=== PATIENT | male | born 1945 | race African-American/Black ===

== ENCOUNTER 2021-07-18 03:43 | Outpatient (CLI) | payer MEDICARE, OTHER | END 2021-07-18 03:44 | disposition critical access hospital (66) | LOC: EMS 03:43 | DX: R40.4 Transient alteration of awareness (principal) | CPT/HCPCS: A0425; A0427 ==

== ENCOUNTER 2021-07-18 04:04 | Emergency (ER) | payer MEDICARE, OTHER ==
[2021-07-18] MEDS ORDERED: ACETAMINOPHEN 650 MG SUPP PR STA (04:24)
[2021-07-18] MEDS ORDERED: SODIUM CHLORIDE 0.9% 1,000 ML IV STA (04:25)
[2021-07-18 04:31] LABS: BASOPHILS % (AUTO) 0.3 %; EOSINOPHILS % (AUTO) 0.1 %; HCT - HEMATOCRIT 41.5 % (42.0-52.0); HGB - HEMOGLOBIN 13.8 g/dL (14.0-18.0); LYMPHOCYTES # (AUTO) 0.3 10^3/uL (1.5-3.5); MEAN CORPUSCULAR HEMOGLOBIN 31.3 pg (27.0-31.0); MEAN CORPUSCULAR HGB CONC 33.3 g/dL (32.0-36.0); MEAN CORPUSCULAR VOLUME 94.1 fL (80.0-94.0); MONOCYTES # (AUTO) 0.6 10^3/uL (0.0-1.0); MONOCYTES % (AUTO) 3.5 %; NEUTROPHILS # (AUTO) 14.6 10^3/uL (1.5-6.6); NEUTROPHILS % (AUTO) 93.5 %; PLT - PLATELET COUNT 155 10^3/uL (130-450); RED BLOOD COUNT 4.41 10^6/uL (4.70-6.10); RED CELL DISTRIBUTION WIDTH 14.7 % (12.0-15.0); WHITE BLOOD COUNT 15.6 x10^3/uL (4.8-10.8)
--- NOTE | 2021-07-18 04:35 | ED Physician Documentation ---
History of Present Illness - Stated complaint Stated Complaint: FEVER - Chief complaint Chief Complaint: Fever - History obtained from History obtained from: EMS - Additonal information Additional information: 75yM with pmh cva with residual L sided deficit, seizure disorder on keppra and dilantin, htn, gerd, DNR/DNI with selective interventions, p/w chronic cough increasing in severity over the past couple of days. patient had a shaking and coughing/choking episode today witnessed by family around 2:30am prompting them to call EMS. patient lives with and children in a hospital bed in the l iving room of their home. normally ambulatory with walker. last seizure 5 years ago per ems. Review of Systems Unable to obtain: Confused PD PAST MEDICAL HISTORY - Past Medical History Past Medical History: Yes Cardiovascular: Hypertension Neuro: CVA, Seizure disorder GI: GERD : Incontinence Musculoskeletal: Chronic back pain - Past Surgical History Past Surgical History: Yes General: Bowel surgery - Present Medications Home Medications: Ambulatory Orders Medication Instructions Recorded Confirmed Cefdinir 300 mg PO BID #20 cap 07/18/21 FLUoxetine [PROzac] 30 mg PO DAILY 07/18/21 07/18/21 Felodipine [Felodipine ER] 10 mg PO DAILY 07/18/21 07/18/21 Ferrous Sulfate 325 mg PO DAILY 07/18/21 07/18/21 Levetiracetam [Keppra] 500 mg PO BID 07/18/21 07/18/21 Lisinopril [Zestril] 20 mg PO DAILY 07/18/21 07/18/21 Mirtazapine 30 mg PO DAILY 07/18/21 07/18/21 Omeprazole Magnesium 20 mg PO DAILY 07/18/21 07/18/21 Phenytoin [Dilantin] 190 mg PO DAILY 07/18/21 07/18/21 metroNIDAZOLE [Flagyl] 500 mg PO BID 10 Days #20 tablet 07/18/21 - Allergies Allergies/Adverse Reactions: Allergies Allergy/AdvReac Type Severity Reaction Status Date / Time No Known Drug Allergies Allergy Verified 07/19/21 18:40 - Social History Does the pt smoke?: No Smoking Status: Never smoker Does the pt drink ETOH?: Yes Does the pt have substance abuse?: No - Immunizations Immunizations are current?: No Immunizations: TDAP >10years/unknown - POLST Patient has POLST: No PD ED PE NORMAL - Vitals Vital signs reviewed: Yes - General General: No acute distress, Other (AOX1) - HEENT HEENT: Atraumatic, PERRL, EOMI - Neck Neck: Supple, no meningeal sign - Cardiac Cardiac: RRR - Respiratory Respiratory: Other (BL coarse breath sounds) - Abdomen Abdomen: Non tender, Non distended - Derm Derm: Normal color, Warm and dry - Extremities Extremities: No deformity - Neuro Neuro: Other (AOX1. baseline L sided weakness) - Psych Psych: Normal mood, Normal affect, Other (appears calm but AOX1) Results - Vitals Vitals: Oxygen O2 Source Room air - Labs Labs: Microbiology 07/18/21 04:15 Blood Culture - Preliminary Blood 07/18/21 04:45 Urine Culture - Final Urine,Catheterized No growth 07/18/21 05:38 Blood Culture - Preliminary Blood NO GROWTH AFTER 2 DAYS 07/18/21 04:15 Blood Culture (PCR) - Final Blood Laboratory Tests 07/18/21 07/18/21 07/18/21 04:15 04:15 04:15 WBC 15.6 H RBC 4.41 L Hgb 13.8 L Hct 41.5 L MCV 94.1 H MCH 31.3 H MCHC 33.3 RDW 14.7 Plt Count 155 MPV 12.0 H Neut # (Auto) 14.6 H Lymph # (Auto) 0.3 L [place] # (Auto) 0.6 Eos # (Auto) 0.0 Baso # (Auto) 0.0 Absolute Nucleated RBC 0.00 Nucleated RBC % 0.0 Sodium 141 Potassium 3.6 Chloride 104 Carbon Dioxide 26 Anion Gap 11.0 BUN 29 H Creatinine 1.1 Estimated GFR (MDRD) 80 L Glucose 106 H Lactic Acid 1.5 Calcium 9.3 Total Bilirubin 0.6 AST 23 ALT 24 Alkaline Phosphatase 119 Total Protein 7.7 Albumin 4.2 Globulin 3.5 Albumin/Globulin Ratio 1.2 Urine Color Urine Clarity Urine pH Ur Specific [place] Urine Protein Urine Glucose (UA) Urine Ketones Urine Occult Blood Urine Nitrite Urine Bilirubin Urine Urobilinogen Ur Leukocyte Esterase Urine RBC Urine WBC Ur Squamous Epith Cells Urine Bacteria Urine Culture Comments Nasal Adenovirus (PCR) Nasal B. parapertussis DNA (PCR) Nasal Coronavir 229E PCR Nasal Coronavir HKU1 PCR Nasal Coronavir NL63 PCR Nasal Coronavir OC43 PCR Nasal Enterovir/Rhinovir PCR Nasal Influenza B PCR Nasal Influenza A PCR Nasal Parainfluen 1 PCR Nasal Parainfluen 2 PCR Nasal Parainfluen 3 PCR Nasal Parainfluen 4 PCR Nasal RSV (PCR) Nasal B.pertussis DNA PCR Nasal C.pneumoniae (PCR) Venkata Human Metapneumo PCR Nasal M.pneumoniae (PCR) Nasal SARS-CoV-2 (PCR) Phenytoin 5.3 07/18/21 07/18/21 04:15 04:45 WBC RBC Hgb Hct MCV MCH MCHC RDW Plt Count MPV Neut # (Auto) Lymph # (Auto) [place] # (Auto) Eos # (Auto) Baso # (Auto) Absolute Nucleated RBC Nucleated RBC % Sodium Potassium Chloride Carbon Dioxide Anion Gap BUN Creatinine Estimated GFR (MDRD) Glucose Lactic Acid Calcium Total Bilirubin AST ALT Alkaline Phosphatase Total Protein Albumin Globulin Albumin/Globulin Ratio Urine Color YELLOW Urine Clarity CLEAR Urine pH 6.0 Ur Specific [place] 1.020 Urine Protein NEGATIVE Urine Glucose (UA) NEGATIVE Urine Ketones NEGATIVE Urine Occult Blood SMALL H Urine Nitrite NEGATIVE Urine Bilirubin NEGATIVE Urine Urobilinogen 0.2 (NORMAL) Ur Leukocyte Esterase TRACE H Urine RBC 6-10 H Urine WBC 4-5 Ur Squamous Epith Cells NONE SEEN Urine Bacteria Moderate H Urine Culture Comments INDICATED Nasal Adenovirus (PCR) NOT DETECTED Nasal B. parapertussis DNA (PCR) NOT DETECTED Nasal Coronavir 229E PCR NOT DETECTED Nasal Coronavir HKU1 PCR NOT DETECTED Nasal Coronavir NL63 PCR NOT DETECTED Nasal Coronavir OC43 PCR NOT DETECTED Nasal Enterovir/Rhinovir PCR NOT DETECTED Nasal Influenza B PCR NOT DETECTED Nasal Influenza A PCR NOT DETECTED Nasal Parainfluen 1 PCR NOT DETECTED Nasal Parainfluen 2 PCR NOT DETECTED Nasal Parainfluen 3 PCR NOT DETECTED Nasal Parainfluen 4 PCR NOT DETECTED Nasal RSV (PCR) NOT DETECTED Nasal B.pertussis DNA PCR NOT DETECTED Nasal C.pneumoniae (PCR) NOT DETECTED Venkata Human Metapneumo PCR NOT DETECTED Nasal M.pneumoniae (PCR) NOT DETECTED Nasal SARS-CoV-2 (PCR) NOT DETECTED Phenytoin PD MEDICAL DECISION MAKING - ED course ED course: 75yM p/w fever and tachycardia, likely 2/2 pneumonia given history of frequent cough that is worsening. Possible aspiration given he has been choking. will obtain labs, xr, reevaluate. Patient with improvement in tachycardia s/p symptomatic care. no longer febrile. rocephin given for presumed uti on u/a. Patient is still pending CT a/p. d/w Dr. Amaral, daytime ED MD for further management and care. Departure - Departure Disposition: 01 Home, Self Care Clinical Impression: UTI (urinary tract infection), Enteritis Condition: Stable Instructions: ED UTI Cystitis Male Prescriptions: Cefdinir 300 mg PO BID #20 cap metroNIDAZOLE [Flagyl] 500 mg PO BID 10 Days #20 tablet Comments: For the most part, your tests look good today. Your sepsis markers is negative, and your blood pressure has been stable. Your heart rate has come down nicely with the treatment of the fever. You do have a moderately elevated white blood cell count, which is not surprising, given that you have had a fever. You have some findings consistent with a urinary tract infection, but your CT scan does not show any kidney stones or severe inflammation of the kidneys. There is some inflammation in your bowels which could be reactionary because of the urinary tract infection. However, bowel inflammation can also be the result of a viral infection or of an overgrowth of the normal bacteria in the intestine. As such, we will treat you with 2 antibiotics to cover the potential for this plus the urinary tract infection. You have been given the first dose in the emergency department today. Please take your antibiotics every day, as directed, until the course is complete. You should drink plenty of water every day, preferably 8 to 10 cups. You may also take ibuprofen/Motrin/Advil 600 mg every 6 hours and/or acetaminophen/Tylenol 650 mg every 4 hours to treat the fever. You should follow-up with your primary care physician in about a week for reevaluation. If you feel as though your symptoms are drastically worsening, please return to the emergency department. Discharge Date/Time: 07/18/21 09:31
[2021-07-18 04:41] LABS: ALBUMIN 4.2 g/dL (3.2-5.5); ALBUMIN/GLOBULIN RATIO 1.2 (1.0-2.2); BILIRUBIN,TOTAL 0.6 mg/dL (0.2-1.0); CALCIUM 9.3 mg/dL (8.5-10.3); CREATININE 1.1 mg/dL (0.6-1.2); PHENYTOIN (DILANTIN) 5.3 ug/mL; POTASSIUM 3.6 mmol/L (3.5-5.0); TOTAL PROTEIN 7.7 g/dL (6.7-8.2)
[2021-07-18 04:55] LABS: BILIRUBIN,URINE NEGATIVE (NEGATIVE); GLUCOSE, URINE (UA) NEGATIVE (NEGATIVE); KETONES,URINE (UA) NEGATIVE (NEGATIVE); LEUKOCYTE ESTERASE, URINE TRACE (NEGATIVE); NITRITE,URINE NEGATIVE (NEGATIVE); OCCULT BLOOD,URINE SMALL (NEGATIVE); PROTEIN,URINE NEGATIVE (NEGATIVE); UROBILINOGEN,URINE 0.2 (NORMAL) E.U./dL (NORMAL)
[2021-07-18 05:03] LABS: BACTERIA,URINE Moderate /HPF (None Seen); CLARITY,URINE CLEAR (CLEAR); SQUAMOUS EPITHELIAL CELL,UR NONE SEEN (<= Few)
[2021-07-18 05:51] LABS: B. PARAPERTUSSIS- RESP PCR PAN NOT DETECTED; B. PERTUSSIS- RESP PCR PANEL NOT DETECTED; C. PNEUMONIAE- RESP PCR PANEL NOT DETECTED; CORONAVIRUS 229E-RESP PCR NOT DETECTED; CORONAVIRUS HKU1-RESP PCR NOT DETECTED; CORONAVIRUS NL63-RESP PCR NOT DETECTED; CORONAVIRUS OC43-RESP PCR NOT DETECTED; HUMAN METAPNEUMOVIRUS NOT DETECTED; INFLUENZA A- RESP PCR PANEL NOT DETECTED; INFLUENZA B - RESP PCR PANEL NOT DETECTED; M. PNEUMONIAE- RESP PCR PANEL NOT DETECTED; PARAINFLUENZA VIRUS 1 NOT DETECTED; PARAINFLUENZA VIRUS 2 NOT DETECTED; PARAINFLUENZA VIRUS 3 NOT DETECTED; PARAINFLUENZA VIRUS 4 NOT DETECTED; RHINOVIRUS/ENTEROVIRUS NOT DETECTED; RSV- RESP PCR PANEL NOT DETECTED; SARS-CoV-2 -RESP PCR PANEL NOT DETECTED
[2021-07-18] MEDS ORDERED: cefTRIAXone 2 GM in SODIUM CHLORIDE 0.9% MINIBAG 100 ML IV STA (06:06)
[2021-07-18] MEDS ORDERED: IOPAMIDOL-300 100 ML VIAL ONE (06:21)
[2021-07-18] MEDS ORDERED: cefTRIAXone 2 GM VIAL ONE (06:23)
[2021-07-18] MEDS ORDERED: IOPAMIDOL-300 100 ML VIAL IVP ONE (07:09)
--- NOTE | 2021-07-18 08:01 | XRAY Report ---
PROCEDURE: Chest 1 View X-Ray INDICATIONS: sepsis TECHNIQUE: One view of the chest was acquired. COMPARISON: None FINDINGS: Surgical changes and devices: None. Lungs and pleura: No pleural effusions or pneumothorax. Lungs are clear. Mediastinum: Mediastinal contours appear normal. Heart size is normal. Bones and chest wall: No suspicious bony lesions. Overlying soft tissues appear unremarkable. IMPRESSION: No acute cardiopulmonary disease process. Reviewed by: Soledad Hodges MD, PhD on 07/18/2021 8:00 AM [facility] Approved by: Soledad Hodges MD, PhD on 07/18/2021 8:00 AM [facility] Station ID: [id number]
--- NOTE | 2021-07-18 08:19 | CT Report ---
PROCEDURE: Abdomen/Pelvis W INDICATIONS: fever, unk source. u/a +leuks, +blood CONTRAST: IV CONTRAST: Optiray 320 ml: 100 PO CONTRAST: *NO PO CONTRAST TECHNIQUE: After the administration of intravenous contrast, 5 mm thick sections acquired from the diaphragms to the symphysis. 5 mm thick coronal and sagittal reformats were acquired. For radiation dose reducti on, the following was used: automated exposure control, adjustment of mA and/or kV according to manjeet ent size. COMPARISON: CT abdomen and pelvis 02/23/2012. FINDINGS: Image quality: Excellent. ABDOMEN: Lung bases: Emphysematous change. No pleural effusion. Heart size is normal. Solid organs: Liver and spleen are normal in size and enhancement. Gallbladder is unremarkable. Bi liary system is non dilated. Pancreas enhances normally. No adrenal nodules. Kidneys demonstrate n ormal size and enhancement, without hydronephrosis. Peritoneum and bowel: Stomach is not distended. No small bowel obstruction. There are fluid-filled lo ops of small bowel with mild wall thickening and enhancement. There is prominent stool in the rectum. No ascites or pneumoperitoneum. Nodes and vessels: No retroperitoneal or mesenteric adenopathy by size criteria. Aorta and inferior vena cava are normal in size. Moderate calcified plaque. Miscellaneous: No ventral hernias. PELVIS: Genitourinary: Bladder wall thickness is normal. No bladder stone. Prostatomegaly. Miscellaneous: No inguinal hernias or adenopathy. Bones: No suspicious bony lesions. Multilevel compression fractures, (T10, T12, L2, L4, L5). On the remote CT L5 compression fracture was present. IMPRESSION: 1. Fluid-filled loops of small bowel with suspected mild small bowel wall thickening and enhancement. Findings concerning for small bowel enteritis. 2. Prominent stool in the rectum raises the possibility of fecal impaction or constipation. 3. Multilevel compression fractures. This report is concordant with the overnight preliminary interpretation. Reviewed by: Gamaliel Brar MD on 07/18/2021 8:18 AM [facility] Approved by: Gamaliel Brar MD on 07/18/2021 8:18 AM [facility] Station ID: [id number]
--- NOTE | 2021-07-18 09:10 | ED Physician Documentation ---
ED Addendum - Addendum Addendum: The patient was signed out to me by Dr. Chance, pending CT scan of the abdomen and pelvis. He had presented to the emergency department with a fever and slight tachycardia, but a normal blood pressure. His work-up thus far had shown an elevated white count at 15, with a normal lactic acid level at 1.5. Urinalysis was mildly positive for infection. PCR panel was negative and blood cultures were pending. CT scan had been ordered, due to some hematuria on the urinalysis, and this showed findings consistent with some enteritis, but otherwise negative. The patient had been treated for his fever and vital signs were normal at this point. His heart rate was in the 80s, and his blood pressures had remained normal throughout his stay. Oxygen saturation was ranging from the mid to upper 90s on room air and chest x-ray was negative. I did speak with the patient's at length regarding all of this. He has been given a dose of Rocephin here in the emergency department and I will prescribe Omnicef and Flagyl as an outpatient. The patient is extremely stable and he is not septic at this time and is a good candidate for discharge home. The is uncomfortable with the idea of the patient having a fever, but we have spoken at length that this is a symptom of the underlying infection, and is not harmful in and of itself. We've discussed treatment of the fever at home, as well as the importance of hydration and of taking the antibiotics every day, as directed, until the course is complete. The has acknowledged that the patient is at his normal mental baseline at this time. I have discussed with her that if the patient drastically worsens, then by all means she should bring him back. We've also discussed that it would likely take a few days for the antibiotics to really start turning the symptoms around, and that the patient may have fevers on and off over the next three or 4 days. We have discussed also that he has blood cultures pending and that if these come back positive for bacteria that are not covered by the antibiotics he is on, then we will call her immediately. Final impression: 1. Urinary tract infection 2. Enteritis 3. Febrile illness Disposition: Home in stable condition 07/18/21 09:04
[2021-07-18 09:31] VITALS: BP 116/66
== END 2021-07-18 09:31 | disposition home or self-care (01) ==
LOC: EDUNIT# → ED 04:04
DX: N39.0 Urinary tract infection, site not specified (principal); K52.9 Noninfective gastroenteritis and colitis, unspecified; R50.9 Fever, unspecified; Z20.822 Contact with and (suspected) exposure to COVID-19; Z66 Do not resuscitate
CPT/HCPCS: 36415; 51701; 71045; 74177; 80053; 80177; 80185; 81001; 83605; 85025; 87040; 87086; 87150; 87181; 87631; 96361; 96365; 99283; 99284; A9270; Q9967; 0202U

== ENCOUNTER 2021-07-19 18:30 | Emergency (ER) | payer MEDICARE, OTHER ==
[2021-07-19 19:13] LABS: BASOPHILS % (AUTO) 0.4 %; EOSINOPHILS % (AUTO) 1.7 %; HCT - HEMATOCRIT 42.1 % (42.0-52.0); HGB - HEMOGLOBIN 13.8 g/dL (14.0-18.0); LYMPHOCYTES % (AUTO) 15.4 %; MEAN CORPUSCULAR HEMOGLOBIN 30.7 pg (27.0-31.0); MEAN CORPUSCULAR HGB CONC 32.8 g/dL (32.0-36.0); MEAN CORPUSCULAR VOLUME 93.6 fL (80.0-94.0); MEAN PLATELET VOLUME 11.6 fL (7.4-11.4); MONOCYTES % (AUTO) 6.3 %; NEUTROPHILS % (AUTO) 75.7 %; PLT - PLATELET COUNT 160 10^3/uL (130-450); RED CELL DISTRIBUTION WIDTH 15.2 % (12.0-15.0); WHITE BLOOD COUNT 11.1 x10^3/uL (4.8-10.8)
--- NOTE | 2021-07-19 19:15 | ED Physician Documentation ---
History of Present Illness - Stated complaint Stated Complaint: BLOOD RESULTS-SENT BY DOC - Chief complaint Chief Complaint: General - History obtained from History obtained from: Patient, Family - Additonal information Additional information: 75-year-old gentleman with history of stroke presents accompanied by his after being requested to return to the emergency department due to a positive bl ood culture. He was seen by my partner yesterday, he had a significant fever with a T-max of 39.3 while in the department and a white count of 15.6 thousand. Really no clear source of the fever, he did have some bacteriuria, and there was also a concern for an aspiration episode. He was sent home on cefdinir and Flagyl, note he had a normal chest x-ray and CT of the belly showing constipation, multilevel compression fractures, and potentially an enteritis. In the interim, 1 of 2 blood cultures is positive with PCR suggesting staph epidermidis. He is feeling better today with no fevers today. Review of Systems Constitutional: denies: Fever, Chills Respiratory: denies: Dyspnea GI: denies: Abdominal Pain, Nausea, Vomiting, Diarrhea PD PAST MEDICAL HISTORY - Past Medical History Cardiovascular: Hypertension Neuro: CVA, Seizure disorder GI: GERD : Incontinence Psych: Depression, Anxiety Musculoskeletal: Chronic back pain - Past Surgical History Past Surgical History: Yes General: Bowel surgery - Present Medications Home Medications: Ambulatory Orders Medication Instructions Recorded Confirmed Cefdinir 300 mg PO BID #20 cap 07/18/21 FLUoxetine [PROzac] 30 mg PO DAILY 07/18/21 07/18/21 Felodipine [Felodipine ER] 10 mg PO DAILY 07/18/21 07/18/21 Ferrous Sulfate 325 mg PO DAILY 07/18/21 07/18/21 Levetiracetam [Keppra] 500 mg PO BID 07/18/21 07/18/21 Lisinopril [Zestril] 20 mg PO DAILY 07/18/21 07/18/21 Mirtazapine 30 mg PO DAILY 07/18/21 07/18/21 Omeprazole Magnesium 20 mg PO DAILY 07/18/21 07/18/21 Phenytoin [Dilantin] 190 mg PO DAILY 07/18/21 07/18/21 metroNIDAZOLE [Flagyl] 500 mg PO BID 10 Days #20 tablet 07/18/21 - Allergies Allergies/Adverse Reactions: Allergies Allergy/AdvReac Type Severity Reaction Status Date / Time No Known Drug Allergies Allergy Verified 07/19/21 18:40 - Social History Does the pt smoke?: No Smoking Status: Never smoker Does the pt drink ETOH?: Yes Does the pt have substance abuse?: No - Immunizations Immunizations are current?: No Immunizations: TDAP >10years/unknown - POLST Patient has POLST: No PD ED PE NORMAL - Vitals Vital signs reviewed: Yes - General General: No acute distress, Other (He appears well but has short-term memory issues.) - HEENT HEENT: PERRL, EOMI - Neck Neck: Supple, no meningeal sign, No bony TTP - Cardiac Cardiac: RRR, No murmur - Respiratory Respiratory: No respiratory distress, Clear bilaterally - Abdomen Abdomen: Non tender - Psych Psych: Normal mood, Normal affect Results - Vitals Vitals: Vital Signs - 24 hr 07/19/21 07/19/21 07/19/21 18:37 19:14 19:30 Temperature 36.9 C Heart Rate 91 80 75 Respiratory 20 14 12 Rate Blood Pressure 136/96 H 139/73 H 141/73 H O2 Saturation 90 L 98 99 Oxygen O2 Source Room air - Labs Labs: Laboratory Tests 07/19/21 07/19/21 07/19/21 19:03 19:03 19:03 WBC 11.1 H RBC 4.50 L Hgb 13.8 L Hct 42.1 MCV 93.6 MCH 30.7 MCHC 32.8 RDW 15.2 H Plt Count 160 MPV 11.6 H Sodium 143 Potassium 3.5 Chloride 106 Carbon Dioxide 24 Anion Gap 13.0 BUN 29 H Creatinine 1.2 Estimated GFR (MDRD) 72 L Glucose 107 H Lactic Acid 2.8 H Calcium 9.1 Total Bilirubin 0.5 AST 28 ALT 24 Alkaline Phosphatase 108 Total Protein 7.7 Albumin 4.1 Globulin 3.6 Albumin/Globulin Ratio 1.1 PD MEDICAL DECISION MAKING - ED course ED course: 75-year-old gentleman recalled to the emergency department for 1 of 2 blood cultures positive for staph epidermidis last night. He is afebrile. His white count is trending down, was 15,000 yesterday, now 11,000. He appears well with a benign exam. Given the above findings I suspect the blood culture is a contaminant and discussed with the return precautions but blood cultures were repeated tonight and we will follow those as well. Departure - Departure Disposition: 01 Home, Self Care Clinical Impression: Positive blood culture Condition: Good Record reviewed to determine appropriate education?: Yes Instructions: Blood Culture Comments: His white blood count is better than it was yesterday, no fevers here. My suspicion is that the positive blood culture from yesterday is likely what we call with contaminant. At this point I think you can continue the plan of care and antibiotics were prescribed yesterday, that said return immediately if he develops a fever or generally worsens, if any of the other blood cultures become positive we will call you to return but I think that is unlikely. Discharge Date/Time: 07/19/21 19:49
[2021-07-19 19:24] LABS: LACTIC ACID, VENOUS 2.8 mmol/L (0.5-2.2)
[2021-07-19 19:25] LABS: ABNORMAL LYMPHS % (MANUAL) 0 %; ALBUMIN 4.1 g/dL (3.2-5.5); ALBUMIN/GLOBULIN RATIO 1.1 (1.0-2.2); BILIRUBIN,TOTAL 0.5 mg/dL (0.2-1.0); CALCIUM 9.1 mg/dL (8.5-10.3); CREATININE 1.2 mg/dL (0.6-1.2); POTASSIUM 3.5 mmol/L (3.5-5.0); TOTAL PROTEIN 7.7 g/dL (6.7-8.2)
[2021-07-19 19:34] VITALS: BP 141/73
[2021-07-19 20:15] LABS: BAND NEUTROPHILS % (MANUAL) 6 %; DIFFERENTIAL COMMENT MANUAL DIFFERENTIAL; EOSINOPHILS # (MANUAL) 0.4 10^3/uL (0-0.7); LYMPHOCYTES # (MANUAL) 2.2 10^3/uL (1.5-3.5); LYMPHOCYTES % (MANUAL) 17 %; MONOCYTES # (MANUAL) 0.6 10^3/uL (0.0-1.0); NEUTROPHILS # (MANUAL) 7.9 10^3/uL (1.5-6.6); PLATELET ESTIMATE, MANUAL NORMAL (130-450,000) (NORMAL); PLATELET MORPHOLOGY NORMAL APPEARANCE (NORMAL); RBC MORPHOLOGY (MULTIPLE) NORMAL APPEARANCE (NORMAL); REACTIVE LYMPHS % (MANUAL) 3 %
--- NOTE | 2021-07-21 04:40 | ED Physician Documentation ---
ED Addendum - Addendum Addendum: 07/21/21 03:38 I received a positive blood culture preliminary result for GPC from 07/19/[address] Blas. After reviewing the chart it is possible this is a contaminant. The other culture is prelim negative. Rather than waking the patient in the middle of the night I plan to endorse to incoming daytime ED MD Dr. Fields since the culture should have a PCR result shortly. If staph epidermidis, and patient is clinically still improving, he likely will not need to return. If he is having fevers on f/u phone call in the morning then he may possibly return for further workup.
--- NOTE | 2021-07-22 12:25 | ED Physician Documentation ---
ED Addendum - Addendum Addendum: 07/22/21 12:24 Patient's had called the emergency department to follow-up on the final results of her his blood cultures. Blood cultures obtained on 19 July grew coag negative staph. This was felt to likely be a contaminant. I discussed this finding with the patient's Sheryl. She reports that she is not comfortable with it being a contaminant and will likely return her to the ER for repeat evaluation.
== END 2021-07-19 19:49 | disposition home or self-care (01) ==
LOC: ED 18:30
DX: R78.81 Bacteremia (principal); I10 Essential (primary) hypertension
CPT/HCPCS: 36415; 80053; 83605; 85025; 87040; 87077; 87150; 87181

== ENCOUNTER 2023-03-11 00:18 | Outpatient (CLI) | payer MEDICARE, OTHER | END 2023-03-11 23:59 | disposition critical access hospital (66) | LOC: EMS 00:18 | DX: R55 Syncope and collapse (principal); R29.810 Facial weakness | CPT/HCPCS: A0425; A0429 ==

== ENCOUNTER 2023-03-11 00:36 | Emergency (ER) | payer MEDICARE, OTHER ==
--- NOTE | 2023-03-11 00:50 | ED Physician Documentation ---
PD HPI FOCAL NEURO - Stated complaint Stated Complaint: CODE STROKE - Chief complaint Chief Complaint: Neuro - History obtained from History obtained from: EMS - Additional information Additional information: 77-year-old male with history of CVA (reported L sided deficits), seizure disorder, dementia presents by EMS from home for left-sided facial droop. History is obtained mostly from EMS as the patient is confused, which is reported to be his baseline. Patient was eating dinner when he had a choking episode. Afterwards family noticed that he had a left-sided facial droop, which is abnormal for the patient. They called 911 and he was brought to the emergency department for evaluation. Accu-Chek 120 in route. Unknown if patient takes any blood thinners. On arrival NIH 2 (confusion, L facial droop) PD PAST MEDICAL HISTORY - Past Medical History Cardiovascular: Hypertension Neuro: CVA, Seizure disorder GI: GERD : Incontinence Psych: Depression, Anxiety Musculoskeletal: Chronic back pain - Past Surgical History Past Surgical History: Yes General: Bowel surgery - Present Medications Home Medications: Ambulatory Orders Medication Instructions Recorded Confirmed Cefdinir 300 mg PO BID #20 cap 07/18/21 FLUoxetine [PROzac] 30 mg PO DAILY 07/18/21 07/18/21 Felodipine [Felodipine ER] 10 mg PO DAILY 07/18/21 07/18/21 Ferrous Sulfate 325 mg PO DAILY 07/18/21 07/18/21 Levetiracetam [Keppra] 500 mg PO BID 07/18/21 07/18/21 Lisinopril [Zestril] 20 mg PO DAILY 07/18/21 07/18/21 Mirtazapine 30 mg PO DAILY 07/18/21 07/18/21 Omeprazole Magnesium 20 mg PO DAILY 07/18/21 07/18/21 Phenytoin [Dilantin] 190 mg PO DAILY 07/18/21 07/18/21 metroNIDAZOLE [Flagyl] 500 mg PO BID 10 Days #20 tablet 07/18/21 - Allergies Allergies/Adverse Reactions: Allergies Allergy/AdvReac Type Severity Reaction Status Date / Time No Known Drug Allergies Allergy Verified 03/11/23 00:46 - Social History Does the pt smoke?: No Smoking Status: Never smoker Does the pt drink ETOH?: Yes Does the pt have substance abuse?: No - Immunizations Immunizations are current?: No Immunizations: TDAP >10years/unknown - POLST Patient has POLST: No PD ED PE NORMAL - Vitals Vital signs reviewed: Yes - General General: No acute distress, Other (AO x2, frail) - HEENT HEENT: Atraumatic, PERRL - Neck Neck: Supple, no meningeal sign - Cardiac Cardiac: RRR, Strong equal pulses - Respiratory Respiratory: No respiratory distress, Clear bilaterally - Abdomen Abdomen: Soft, Non tender, Non distended - Derm Derm: Normal color, Warm and dry, No rash - Extremities Extremities: No deformity, No tenderness to palpate - Neuro Neuro: No sensory deficit, Normal speech, Other (L facial droop. Oriented x2) NIHSS - Level of Consciousness Level of consciousness: (0) Alert, Keenly responsive LOC Questions: (1) Answers one Q correctly LOC Commands: (0) Performs both correctly - Gaze Best Gaze: (0) Normal - Visual Visual: (0) No loss - Facial Palsy Facial Palsy: (1) Minor paralysis - Motor Arms (both separate) Motor Arm (right): (0) No drift Motor Arm (left): (0) No drift - Motor Legs (both separate) Motor Leg (right): (0) No drift Motor Leg (left): (0) No drift - Limb Ataxia Limb Ataxia: (0) Absent - Sensory Sensory: (0) Normal - Best Language Best Language: (0) No aphasia - Dysarthria Dysarthria: (0) Normal - Extinction and Inattention (formally neg Extinction and inattention: (0) No abnormality - Total Score/Results Total Score/Result: 2 Results - Vitals Vitals: Vital Signs - 24 hr 03/11/23 03/11/23 03/11/23 00:41 02:26 02:30 Heart Rate 61 53 L Respiratory 18 16 Rate Blood Pressure 157/91 H 154/87 H 181/93 H O2 Saturation 100 98 03/11/23 03/11/23 03/11/23 02:45 02:50 03:00 Heart Rate 56 L 49 L Respiratory 16 16 Rate Blood Pressure 187/99 H 187/99 H 181/97 H O2 Saturation 100 100 03/11/23 03/11/23 03:16 03:34 Heart Rate 53 L 59 L Respiratory 16 16 Rate Blood Pressure 181/94 H 151/86 H O2 Saturation 99 100 Oxygen O2 Source Room air - EKG (time done) 0056 EKG releavant findings:: EKG personally interpreted by author of this note. Relevant findings are: Rate: Rate (enter#) (59) Rhythm: Sinus bradycardia [place]: Normal Intervals: Normal NM Ischemia: Normal ST segments - Labs Labs: Laboratory Tests 03/11/23 03/11/23 03/11/23 00:39 00:47 00:47 WBC 5.9 RBC 4.57 L Hgb 13.7 L Hct 41.6 L MCV 91.0 MCH 30.0 MCHC 32.9 RDW 15.0 Plt Count 179 MPV 11.1 Neut # (Auto) 3.1 Lymph # (Auto) 2.2 [place] # (Auto) 0.5 Eos # (Auto) 0.1 Baso # (Auto) 0.0 Absolute Nucleated RBC 0.00 Nucleated RBC % 0.0 PT 11.9 INR 1.1 APTT 30.1 Sodium Potassium Chloride Carbon Dioxide Anion Gap BUN Creatinine Estimated GFR (MDRD) Glucose POC Whole Bld Glucose 131 H Calcium Total Bilirubin AST ALT Alkaline Phosphatase Troponin I High Sens Total Protein Albumin Globulin Albumin/Globulin Ratio 03/11/23 03/11/23 00:47 00:47 WBC RBC Hgb Hct MCV MCH MCHC RDW Plt Count MPV Neut # (Auto) Lymph # (Auto) [place] # (Auto) Eos # (Auto) Baso # (Auto) Absolute Nucleated RBC Nucleated RBC % PT INR APTT Sodium 140 Potassium 3.5 Chloride 111 Carbon Dioxide 25 Anion Gap 4.0 L BUN 32 H Creatinine 1.1 Estimated GFR (MDRD) 79 L Glucose 155 H POC Whole Bld Glucose Calcium 9.5 Total Bilirubin 0.2 AST 18 ALT 18 Alkaline Phosphatase 108 Troponin I High Sens 2.5 Total Protein 7.5 Albumin 4.0 Globulin 3.5 Albumin/Globulin Ratio 1.1 PD Medical Decision Making - ED course ED course: Possible CVA - however patient currently confused. There is facial droop noted on exam without other obvious deficit. Due to unknown medical history will wait for family to provide additional information. 0055 - family has arrived to provide additional history. They report patient's facial droop is new and not seen before 11pm. Patient is confused, however does have history of dementia and he is at his baseline. 0145 - noncon CT reviewed, negative for bleed. Teleneuro discussed risks and benefits of TNKase with , who wishes to proceed with thrombolytics. Delay in obtaining IV access, US guided IV placed in R AC by myself for labs and TNKase administration. 021 - TNKase administered 309 - accepted for transfer to [facility]. - Critical Care Time(min): 43 Time Includes: Direct patient care, Review records, Reassess patient, Document care, Coordinate care, Medical consult, Family consult for tx dec Data interpretation: Labs, Pulse ox, CXR, Prior EKG, Cardiac output Procedures included in critical care time: Peripheral IV, Blood draw Procedures excluded from critical care time: EKG - TPA CVA checklist Inclusion crititeria: positive: Sig neuro deficit, CT no bleed, Onset know < 4.5 hr Absolute contraindications if 3-4.5 hr: negative: Coumadin (any INR), Age > 80, Combo prior CVA & DM Departure - Departure Disposition: 02 Transfer Acute Care Hosp Clinical Impression: Cerebrovascular accident (CVA) Condition: Serious Forms: PCP List
[2023-03-11 00:54] LABS: BASOPHILS % (AUTO) 0.7 %; EOSINOPHILS # (AUTO) 0.1 10^3/uL (0.0-0.7); EOSINOPHILS % (AUTO) 2.4 %; HCT - HEMATOCRIT 41.6 % (42.0-52.0); HGB - HEMOGLOBIN 13.7 g/dL (14.0-18.0); LYMPHOCYTES # (AUTO) 2.2 10^3/uL (1.5-3.5); LYMPHOCYTES % (AUTO) 36.5 %; MEAN CORPUSCULAR HGB CONC 32.9 g/dL (32.0-36.0); MEAN PLATELET VOLUME 11.1 fL (7.4-11.4); MONOCYTES # (AUTO) 0.5 10^3/uL (0.0-1.0); MONOCYTES % (AUTO) 7.9 %; NEUTROPHILS # (AUTO) 3.1 10^3/uL (1.5-6.6); NEUTROPHILS % (AUTO) 52.3 %; PLT - PLATELET COUNT 179 10^3/uL (130-450); RED BLOOD COUNT 4.57 10^6/uL (4.70-6.10); WHITE BLOOD COUNT 5.9 x10^3/uL (4.8-10.8)
[2023-03-11 01:02] LABS: INR 1.1 (0.8-1.2); PT - PROTHROMBIN TIME 11.9 secs (9.9-12.6)
[2023-03-11 01:09] LABS: PARTIAL THROMBOPLASTIN TIME 30.1 secs (24.9-33.3)
[2023-03-11 01:12] LABS: ALBUMIN/GLOBULIN RATIO 1.1 (1.0-2.2); BILIRUBIN,TOTAL 0.2 mg/dL (0.2-1.0); CALCIUM 9.5 mg/dL (8.5-10.3); CREATININE 1.1 mg/dL (0.6-1.3); POTASSIUM 3.5 mmol/L (3.5-4.5); TOTAL PROTEIN 7.5 g/dL (6.4-8.9)
--- NOTE | 2023-03-11 01:32 | CT Report ---
PROCEDURE: Head W/O Stroke Protocol INDICATIONS: L FACIAL DROOP TECHNIQUE: Noncontrast 4.5 mm thick angled axial sections acquired from the foramen magnum to the vertex, with c oronal reformats. For radiation dose reduction, the following was used: automated exposure control, adjustment of mA and/or kV according to patient size. COMPARISON: None. FINDINGS: Image quality: Excellent. CSF spaces: There is moderate to severe cerebral volume loss with prominence of the ventricles and s ulci. Basal cisterns are patent. No extra-axial fluid collections. Brain: No intracranial hemorrhage, mass, or mass effect. Benoit-white matter interface is preserved. T here are subcortical and periventricular white matter hypodensities consistent with severe chronic sm all vessel ischemic changes. Skull and face: Calvarium and visualized facial bones are intact, without suspicious lesions. Sinuses: Visualized sinuses and mastoids are clear. IMPRESSION: 1. No definite acute intracranial abnormality. Specifically, no hemorrhage or other imaging complicat ions to TPA. Findings discussed with Dr. Flores on 03/11/2023 at 1:28 AM. This study fulfills neurological imaging criteria for inclusion or exclusion of acute stroke therapie s based on available published neurological imaging guidelines. Reviewed by: Franklin Sharp MD on 03/11/2023 1:31 AM PDT Approved by: Franklin Sharp MD on 03/11/2023 1:31 AM PDT Station ID: [id number]
[2023-03-11] MEDS ORDERED: TENECTEPLASE 50 MG/10 ML VIAL IVP STA ×3 (01:48→01:59)
--- OUTSIDE RECORDS SUMMARY | 2023-03-11 02:34 | EXTERNAL MEDICAL SUMMARY RPT | Continuity of Care Document ---
Author Name Unknown Address [address] [place] [address] Phone Organization [facility] Address [address] [place] [address] Phone Care Team Providers Care Contract Assistant Name Role Phone Unavailable Unavailable Unavailable Rebekah Christian Unavailable Unavailable Allergies and Intolerances date description facility reaction severity (no date) vancomycin [facility] (no reaction) (no se verity) Medications date description facility 2022-12-25 00:00 Amoxicillin [facility] Problems date description facility 2022-12-21 00:00 Urinary tract infection [facility] 2022-12-21 00:00 Altered mental status [facility] 2022-12-21 00:00 COVID-19 [facility] 2022-12-22 08:37 Urinary tract infection, site n ot specified [facility] 2022-12-22 10:52 Urinary tract infection, site n ot specified [facility] 2022-12-24 12:26 Urinary tract infection, site n ot specified [facility] 2022-12-24 15:47 Urinary tract infection, site n ot specified [facility] 2022-12-24 16:03 Urinary tract infection, site n ot specified [facility] 2022-12-25 09:25 Urinary tract infection, site n ot specified [facility] 2022-12-25 09:35 Urinary tract infection, site n ot specified [facility] 2022-12-25 11:01 Urinary tract infection, site n ot specified [facility] 2022-12-25 14:42 Urinary tract infection, site n ot specified [facility] 2022-12-25 16:01 Urinary tract infection, site n ot specified [facility] 2023-02-23 16:31 Urinary tract infection, site n ot specified [facility] Procedures date description facility 2022-12-21 00:00 Computed tomography of head or brain without contrast [facility] 2022-12-21 00:00 X-ray of chest, single [facility] 2022-12-21 00:00 Magnetic resonance imaging of b rain for stroke alert [facility] Results/Labs test date facility value unit notes Social History date description facility 2022-12-21 00:00 Ex-smoker (finding) [facility] Vital Signs date measurement value units 2022-12-21 00:00 BMI 24.7 kg/m2 2022-12-21 00:00 BP_diastolic 93 mmHg 2022-12-21 00:00 BP_systolic 216 mmHg 2022-12-21 00:00 heart_rate 69 /min 2022-12-21 00:00 height_metric 160.02 cm 2022-12-21 00:00 height_standard 63 in 2022-12-21 00:00 o2_saturation 97 % 2022-12-21 00:00 respiration_rate 9 /min 2022-12-21 00:00 temperature_metric 37.11 C 2022-12-21 00:00 temperature_standard 98.8 F 2022-12-21 00:00 weight_metric 63.5 kg 2022-12-21 00:00 weight_standard 139.99 lb 2022-12-25 00:00 BP_diastolic 87 mmHg 2022-12-25 00:00 BP_systolic 145 mmHg 2022-12-25 00:00 heart_rate 66 /min 2022-12-25 00:00 o2_saturation 95 % 2022-12-25 00:00 respiration_rate 17 /min 2022-12-25 00:00 temperature_metric 36.28 C 2022-12-25 00:00 temperature_standard 97.3 F
[2023-03-11 03:37] VITALS: BP 151/86
[2023-03-11] MEDS ORDERED: iohexoL-300 100 ML VIAL IVP ONE (04:44)
--- NOTE | 2023-03-11 08:22 | XRAY Report ---
PROCEDURE: Chest 1 View X-Ray INDICATIONS: AMS TECHNIQUE: One view of the chest was acquired. COMPARISON: Chest x-ray 07/18/2021 FINDINGS: Surgical changes and devices: None. Lungs and pleura: No pleural effusions or pneumothorax. Lungs are clear. Mediastinum: Mediastinal contours appear normal. Heart size is normal. Bones and chest wall: No suspicious bony lesions. Overlying soft tissues appear unremarkable. IMPRESSION: No acute cardiopulmonary process. The above findings are concordant with preliminary report. Reviewed by: Keeley Valente MD on 03/11/2023 8:21 AM PDT Approved by: Keeley Valente MD on 03/11/2023 8:21 AM PDT Station ID: [id number]
--- NOTE | 2023-03-11 10:56 | CT Report ---
PROCEDURE: CT Angio Head/Neck INDICATIONS: L FACIAL DROOP TECHNIQUE: Pre-contrast 4.5 mm thick sections acquired from the foramen magnum to the vertex. After the adminis tration of intravenous contrast, 1 mm thick sections acquired from the aortic arch through the [place]. Post-contrast 4.5 mm thick sections then re-acquired from the foramen magnum to the vert ex. 3-dimensional mlpnuzp-lwnbgjaus-msktwqbekf (MIP) and/or volume rendering reformats were acquired of the central intracranial vasculature and neck separately. For radiation dose reduction, the foll owing was used: automated exposure control, adjustment of mA and/or kV according to patient size. CONTRAST: Omni 300 80ml COMPARISON: CT head 03/11/2023 FINDINGS: Image quality: Excellent. BRAIN: The ventricular system and cortical sulci demonstrate atrophy, consistent for patient's stated age. There are areas of hypodensity in the periventricular and subcortical white matter. There is no acut e intra or extra-axial fluid collection. No acute hemorrhage, mass lesion or midline shift. Brainst em is unremarkable. Globes are symmetrical. Sinuses are aerated. Osseous structures are intact. HEAD CT ANGIOGRAPHY: Anterior circulation: Intracranial internal carotid arteries are normal in size and flow. The flow within the paired anterior cerebral arteries is normal and symmetric. The flow within the middle cer ebral arteries is normal and symmetric. The anterior communicating artery is seen. No aneurysms are seen. Posterior circulation: Slight right vertebral artery dominance. There is incidental note of a persis tent left-sided circulation, consistent with congenital variation. Visualized portions of the v ertebral arteries demonstrate normal caliber, and join to form a normal appearing basilar artery. Fl ow within the posterior cerebral arteries is normal and symmetric. No aneurysms are seen. NECK CT ANGIOGRAPHY: Carotid system: Bovine arch is present, consistent with congenital variation. The origins of the comm on carotid arteries appear patent. The common carotid arteries demonstrate normal caliber and course s. The bifurcation regions are both widely patent. The internal carotid arteries demonstrate normal calibers and courses. Posterior circulation: The origins of the vertebral arteries both appear widely patent. The more chino perior extracranial portions of both vertebral arteries also demonstrate normal courses and calibers. They join to form a normal appearing basilar artery. Soft tissues: Visualized neck soft tissues demonstrate no suspicious abnormalities. Bones: No suspicious bony lesions. Visualized cervical spine appears normally aligned. IMPRESSION: 1. No acute intracranial process. 2. Moderate atrophy and chronic microvascular ischemic changes. 3. No areas of hemodynamically significant stenosis, vascular occlusion or aneurysmal dilation within the anterior or posterior circulation. 4.There are no areas of hemodynamically significant stenosis, vascular occlusion or aneurysmal dilati on within the neck vasculature. The above findings are concordant with preliminary report. The estimate of stenosis included in the report of the imaging study was calculated using the NASCET method Reviewed by: Keeley Valente MD on 03/11/2023 10:55 AM PDT Approved by: Keeley Valente MD on 03/11/2023 10:55 AM PDT Station ID: [id number]
== END 2023-03-11 04:32 | disposition short-term general hospital (02) ==
LOC: ED 00:36
DX: I63.9 Cerebral infarction, unspecified (principal); I10 Essential (primary) hypertension; G40.909 Epilepsy, unspecified, not intractable, without status epilepticus; Z79.899 Other long term (current) drug therapy
CPT/HCPCS: 36415; 37195; 70450; 70496; 70498; 71045; 80053; 84484; 85025; 85610; 85730; 93005; 99285; 99291; J3101; Q9967

== ENCOUNTER 2023-03-11 04:30 | Outpatient (CLI) | payer MEDICARE, OTHER | END 2023-03-11 23:59 | disposition short-term general hospital (02) | LOC: EMS 04:30 | PROVIDERS: ATTEND Emergency Medicine | DX: I63.9 Cerebral infarction, unspecified (principal) | CPT/HCPCS: A0425; A0429 ==

== ENCOUNTER 2023-07-18 13:23 | Outpatient (CLI) | payer MEDICARE, OTHER | END 2023-07-18 13:24 | disposition critical access hospital (66) | LOC: EMS 13:23 | DX: R47.1 Dysarthria and anarthria (principal); R29.810 Facial weakness | CPT/HCPCS: A0425; A0429 ==

== ENCOUNTER 2023-07-18 13:40 | Inpatient (IN) | payer MEDICARE, OTHER ==
--- NOTE | 2023-07-18 13:44 | ED Physician Documentation ---
PD HPI FOCAL NEURO - Stated complaint Stated Complaint: SLURRED SPEECH - History obtained from History obtained from: Patient, EMS - Additional information Additional information: 77-year-old gentleman with history of stroke, seizure disorder, dementia presents from home for concern for stroke by EMS. Reportedly was normal at 11 AM and then was somewhat febrile and not answering questions and he is noted to have a left facial droop. He is not known to be on any blood thinners, and his medication list does not include any blood thinners previously. He does have a left facial droop but looking at prior records that this is probably chronic. He did receive TNK for a similar presentation just 4 months ago and was transferred to [facility]. And he did not have an LVO at that time. PD PAST MEDICAL HISTORY - Past Medical History Cardiovascular: Hypertension Neuro: CVA, Seizure disorder GI: GERD : Incontinence Psych: Depression, Anxiety Musculoskeletal: Chronic back pain - Past Surgical History Past Surgical History: Yes General: Bowel surgery - Present Medications Home Medications: Ambulatory Orders Medication Instructions Recorded Confirmed Cefdinir 300 mg PO BID #20 cap 07/18/21 FLUoxetine [PROzac] 30 mg PO DAILY 07/18/21 07/18/21 Felodipine [Felodipine ER] 10 mg PO DAILY 07/18/21 07/18/21 Ferrous Sulfate 325 mg PO DAILY 07/18/21 07/18/21 Levetiracetam [Keppra] 500 mg PO BID 07/18/21 07/18/21 Lisinopril [Zestril] 20 mg PO DAILY 07/18/21 07/18/21 Mirtazapine 30 mg PO DAILY 07/18/21 07/18/21 Omeprazole Magnesium 20 mg PO DAILY 07/18/21 07/18/21 Phenytoin [Dilantin] 190 mg PO DAILY 07/18/21 07/18/21 metroNIDAZOLE [Flagyl] 500 mg PO BID 10 Days #20 tablet 07/18/21 - Allergies Allergies/Adverse Reactions: Allergies Allergy/AdvReac Type Severity Reaction Status Date / Time No Known Drug Allergies Allergy Verified 03/11/23 00:46 - Social History Does the pt smoke?: No Smoking Status: Never smoker Does the pt drink ETOH?: Yes Does the pt have substance abuse?: No - Immunizations Immunizations are current?: No Immunizations: TDAP >10years/unknown - POLST Patient has POLST: No PD ED PE NORMAL - Vitals Vital signs reviewed: Yes - General General: No acute distress, Other (He is alert and oriented to person but not place or time.) - HEENT HEENT: PERRL, EOMI, Other (Significant left facial droop, unclear chronicity, see HPI) - Neck Neck: Supple, no meningeal sign, No bony TTP - Cardiac Cardiac: RRR, No murmur - Respiratory Respiratory: No respiratory distress, Clear bilaterally - Abdomen Abdomen: Non tender - Neuro Neuro: Other (Very weak legs with poor muscle tone) Eye Opening: Spontaneous Motor: Obeys Commands Verbal: Confused GCS Score: 14 NIHSS - Time Time: 13:40 - Level of Consciousness Level of consciousness: (0) Alert, Keenly responsive LOC Questions: (2) Answers neither correct LOC Commands: (0) Performs both correctly - Gaze Best Gaze: (0) Normal - Visual Visual: (0) No loss - Facial Palsy Facial Palsy: (2) Partial paralysis (Left side) - Motor Arms (both separate) Motor Arm (right): (0) No drift Motor Arm (left): (0) No drift - Motor Legs (both separate) Motor Leg (right): (1) Drift Motor Leg (left): (1) Drift - Limb Ataxia Limb Ataxia: (0) Absent - Sensory Sensory: (0) Normal - Best Language Best Language: (1) ofto-je-lsdeimi - Dysarthria Dysarthria: (0) Normal - Extinction and Inattention (formally neg Extinction and inattention: (0) No abnormality - Total Score/Results Total Score/Result: 7 Results - Vitals Vitals: Vital Signs - 24 hr 07/18/23 07/18/23 14:50 17:24 Temperature 36.0 C L 36.4 C L Heart Rate 98 102 H Respiratory 16 20 Rate Blood Pressure 160/89 H 184/90 H O2 Saturation 96 98 Oxygen O2 Source Room air - EKG (time done) 1458 EKG releavant findings:: EKG personally interpreted by author of this note. Relevant findings are: Rate: Rate (enter#) (101) Rhythm: Sinus tachycardia [place]aton: Normal Intervals: Prolonged QT Ischemia: Non specific changes - Labs Labs: Laboratory Tests 12/09/23 12/09/23 12/09/23 14:43 14:43 14:43 WBC 24.3 H RBC 4.79 Hgb 14.2 Hct 42.9 MCV 89.6 MCH 29.6 MCHC 33.1 RDW 14.2 Plt Count 148 MPV 10.6 Neut # (Auto) Not Reportable Lymph # (Auto) Not Reportable [place] # (Auto) Not Reportable Eos # (Auto) Not Reportable Baso # (Auto) Not Reportable Absolute Nucleated RBC Not Reportable Total Counted 100 Band Neuts % (Manual) 3 Reactive Lymphs % (Man) 6 Abnorm Lymph % (Manual) 0 Nucleated RBC % Not Reportable Neutrophils # (Manual) 19.4 H Lymphocytes # (Manual) 2.9 Monocytes # (Manual) 1.9 H Eosinophils # (Manual) 0.0 Basophils # (Manual) 0.0 Differential Comment MANUAL DIFFERENTIAL Platelet Estimate NORMAL (130-450,000) Platelet Morphology NORMAL APPEARANCE RBC Morph Micro Appear NORMAL APPEARANCE PT 12.2 INR 1.1 Sodium 133 L Potassium 3.6 Chloride 98 L Carbon Dioxide 25 Anion Gap 10.0 BUN 27 H Creatinine 1.5 H Estimated GFR (MDRD) 55 L Glucose 106 H Calcium 9.6 Total Bilirubin 0.4 AST 22 ALT 12 Alkaline Phosphatase 113 Total Protein 8.0 Albumin 4.0 Globulin 4.0 Albumin/Globulin Ratio 1.0 Lipase < 10 L Urine Color Urine Clarity Urine pH Ur Specific [place] Urine Protein Urine Glucose (UA) Urine Ketones Urine Occult Blood Urine Nitrite Urine Bilirubin Urine Urobilinogen Ur Leukocyte Esterase Urine RBC Urine WBC Ur Squamous Epith Cells Urine Bacteria Ur Microscopic Review Urine Culture Comments Phenytoin < 0.5 07/18/23 17:13 WBC RBC Hgb Hct MCV MCH MCHC RDW Plt Count MPV Neut # (Auto) Lymph # (Auto) [place] # (Auto) Eos # (Auto) Baso # (Auto) Absolute Nucleated RBC Total Counted Band Neuts % (Manual) Reactive Lymphs % (Man) Abnorm Lymph % (Manual) Nucleated RBC % Neutrophils # (Manual) Lymphocytes # (Manual) Monocytes # (Manual) Eosinophils # (Manual) Basophils # (Manual) Differential Comment Platelet Estimate Platelet Morphology RBC Morph Micro Appear PT INR Sodium Potassium Chloride Carbon Dioxide Anion Gap BUN Creatinine Estimated GFR (MDRD) Glucose Calcium Total Bilirubin AST ALT Alkaline Phosphatase Total Protein Albumin Globulin Albumin/Globulin Ratio Lipase Urine Color YELLOW Urine Clarity HAZY Urine pH 5.5 Ur Specific [place] 1.025 Urine Protein 30 H Urine Glucose (UA) NEGATIVE Urine Ketones NEGATIVE Urine Occult Blood SMALL H Urine Nitrite NEGATIVE Urine Bilirubin NEGATIVE Urine Urobilinogen 0.2 (NORMAL) Ur Leukocyte Esterase SMALL H Urine RBC 6-10 H Urine WBC >25 H Ur Squamous Epith Cells RARE Squamous Urine Bacteria Many H Ur Microscopic Review INDICATED Urine Culture Comments INDICATED Phenytoin - Rads (name of study) CT head without contrast demonstrating no acute disease. Diffuse parenchymal volume loss and ventriculomegaly Relevant Findings:: Final report received, EMP independent interpretation of test Single view chest x-ray demonstrates subtle bilateral lower lobe infiltrate concerning for pneumonia. Relevant Findings:: Final report received, EMP independent interpretation of test PD Medical Decision Making - ED course ED course: 77-year-old gentleman presents with strokelike symptoms in the setting of a prior stroke with TNK received in March, unknown outcome of his hospitalization at [facility] at that time. I saw him in the ambulance and he was sent immediately for CT/CTA. On my "wet read" of his imaging he has significant ventriculomegaly and white matter changes without acute bleed and I do not see an LVO. It is unclear what his baseline is, he is documented to have dementia. 2:05 PM I spoke with telestroke neurologist who will see him, would like to get collateral information from the family. Shortly thereafter I called his who is pulling up to the hospital and promised to be she will be in the room within minutes. 2:15pm The telestroke neurologist called me back and he was able to review his records from his prior hospitalization at [facility] in March and notes that he did have an intraventricular bleed after TNK administration and as such he feels he is completely excluded from consideration for TNK. 2:20 PM: at the bedside. She states that his baseline is that he would be alert alert and oriented to person and place but not time or events. Still recognizes family. Manages most of his ADLs and walks with a walker but does sometimes need help toileting. I discussed with her the opinion of the telestroke neurologist that TNK should probably not be repeated given that he had intraventricular bleeding a few months ago related to TNK administration previously. 2:30 PM: Telestroke neurologist has reviewed the CT angiography and does not see a large vessel occlusion. Will order aspirin and MRI of brain. states last seizure was approximately 2014 and does not feel that there was any seizure activity today and was not Lalone long enough to have had seizure activity. 4:14 PM: MRI read as negative for stroke. He has confluent T2 flair changes consistent with chronic microvascular ischemia. Labs reviewed, white count of 24,000, normal INR, CMP with elevated creatinine and prerenal azotemia with mild hyponatremia. He has no detectable phenytoin in his system. At this point stroke is been ruled out given the MRI findings but wonder if he might have an infection based on the leukocytosis; or perhaps he had a seizure due to subtherapeutic antiepileptic levels. does note that he has been switched to Keppra so it is inconsequential that his phenytoin level was negative. 5:20 PM: Chest x-ray showing bibasilar pneumonia. This would explain his leukocytosis and encephalopathy and worsening of prior stroke symptoms without recurrent stroke on MRI. We will culture him up and check a lactate. Administer IV Rocephin and Zithromax and I spoke with Dr. Wells at 5:32 PM for admission. - Critical Care Time(min): 42 Time Includes: Direct patient care, Review records, Reassess patient, Document care, Coordinate care, Medical consult, Family consult for tx dec Data interpretation: Labs, Pulse ox Procedures included in critical care time: Peripheral IV Procedures excluded from critical care time: EKG Departure - Departure Disposition: 66 CAH DC/Xfer Clinical Impression: Stroke-like symptoms, CVA, old, cognitive deficits Pneumonia Qualifiers: Pneumonia type: due to unspecified organism Laterality: bilateral Lung location: lower lobe of lung Qualified Code(s): J18.9 - Pneumonia, unspecified organism Condition: Serious
--- NOTE | 2023-07-18 14:14 | CT Report ---
PROCEDURE: Head W/O Stroke Protocol INDICATIONS: Neuro deficit, acute, stroke suspected TECHNIQUE: Noncontrast 4.5 mm thick angled axial sections acquired from the foramen magnum to the vertex, with c oronal reformats. For radiation dose reduction, the following was used: automated exposure control, adjustment of mA and/or kV according to patient size. COMPARISON: CT March 10, 2023 FINDINGS: Image quality: Excellent. CSF spaces: Basal cisterns are patent. No extra-axial fluid collections. Ventricles are normal in size and shape. Brain: Diffuse parenchymal volume loss with expansion of the CSF containing spaces suggestive of chr onic microvascular ischemic changes. No midline shift. No intracranial masses or hemorrhage. Benoit-w kylee matter interface is normal. Skull and face: Calvarium and visualized facial bones are intact, without suspicious lesions. Sinuses: Visualized sinuses and mastoids are clear. IMPRESSION: No acute intracranial pathology This study fulfills neurological imaging criteria for inclusion or exclusion of acute stroke therapie s based on available published neurological imaging guidelines. Reviewed by: Luis E Edgar MD on 07/18/2023 1:12 PM [place] Approved by: Luis E Edgar MD on 07/18/2023 1:12 PM [place] Station ID: [id number]
[2023-07-18] MEDS ORDERED: ASPIRIN CHEW 81 MG TABLET PO STA (14:30)
[2023-07-18 14:48] LABS: BASOPHILS % (AUTO) 0.3 %; HCT - HEMATOCRIT 42.9 % (42.0-52.0); HGB - HEMOGLOBIN 14.2 g/dL (14.0-18.0); LYMPHOCYTES % (AUTO) 5.1 %; MEAN CORPUSCULAR HEMOGLOBIN 29.6 pg (27.0-31.0); MEAN CORPUSCULAR HGB CONC 33.1 g/dL (32.0-36.0); MEAN CORPUSCULAR VOLUME 89.6 fL (80.0-94.0); MEAN PLATELET VOLUME 10.6 fL (7.4-11.4); MONOCYTES % (AUTO) 5.4 %; NEUTROPHILS % (AUTO) 87.6 %; PLT - PLATELET COUNT 148 10^3/uL (130-450); RED BLOOD COUNT 4.79 10^6/uL (4.70-6.10); RED CELL DISTRIBUTION WIDTH 14.2 % (12.0-15.0); WHITE BLOOD COUNT 24.3 x10^3/uL (4.8-10.8)
[2023-07-18 14:52] LABS: ABNORMAL LYMPHS % (MANUAL) 0 %
--- NOTE | 2023-07-18 14:56 | CT Report ---
PROCEDURE: CT Angio Head/Neck INDICATIONS: CVA sx TECHNIQUE: After the administration of intravenous contrast, 1 mm thick sections acquired from the aortic arch t hrough the [place] [facility] [place]. 3-dimensional serpijb-yfskpvkjp-cpltojvxkv (MIP) and/or volume renderin g reformats were acquired of the central intracranial vasculature and neck separately. For radiation dose reduction, the following was used: automated exposure control, adjustment of mA and/or kV acco rding to patient size. COMPARISON: Head CT without, 07/18/2023. CT angiography head/neck, 03/11/2023. FINDINGS: Image quality: Suboptimal due to positioning. HEAD CT: CSF Spaces: Basal cisterns are patent. No extra-axial fluid collections. Ventricles are normal in size and shape. Brain: The brain is within normal limits for age and scanning technique. Skull and face: Calvarium and visualized facial bones appear intact, without suspicious lesions. Sinuses: Visualized sinuses and mastoids are clear. HEAD CT ANGIOGRAPHY: Anterior circulation: Intracranial internal carotid arteries are normal in size and flow. Calcified plaques at the cavernous segment of the internal carotid arteries bilaterally. The flow within the pa ired anterior cerebral arteries is normal and symmetric. The flow within the middle cerebral arterie s is normal and symmetric. The anterior communicating artery is seen. No aneurysms are seen. Posterior circulation: Visualized portions of the vertebral arteries demonstrate normal caliber, and join to form a normal appearing basilar artery. Flow within the posterior cerebral arteries is norm al and symmetric. No aneurysms are seen. NECK CT ANGIOGRAPHY: Carotid system: The great vessels demonstrate a conventional anatomy as they arise from the aortic a rch. The origins of the common carotid arteries appear patent. The common carotid arteries demonstr ate normal caliber and courses. There are calcified plaques at the carotid bifurcations bilaterally. The bifurcation regions are both patent. The internal carotid arteries demonstrate normal calibers a nd courses. Posterior circulation: The origins of the vertebral arteries both appear widely patent. The more chino perior extracranial portions of both vertebral arteries also demonstrate normal courses and calibers. They join to form a normal appearing basilar artery. Soft tissues: Visualized neck soft tissues demonstrate no suspicious abnormalities. Bones: No suspicious bony lesions. Visualized cervical spine appears normally aligned. IMPRESSION: 1. No acute intracranial abnormalities. 2. Cerebral volume loss and severe periventricular white matter chronic small vessel ischemic changes . 3. Calcified plaques in cavernous segment of the internal carotid arteries bilaterally. No high-grade stenosis or occlusion in anterior or posterior circulations. 4. Calcified plaques at the carotid bulbs bilaterally. No high-grade stenosis or occlusion in cervica l carotid arteries or vertebral arteries. The estimate of stenosis included in the report of the imaging study was calculated using the NASCET method Reviewed by: Sarah Lyon MD on 07/18/2023 2:55 PM PST Approved by: Sarah Lyon MD on 07/18/2023 2:55 PM PST Station ID: [id number]
[2023-07-18 14:58] LABS: INR 1.1 (0.8-1.2); PT - PROTHROMBIN TIME 12.2 secs (9.9-12.6)
[2023-07-18 15:14] LABS: ALKALINE PHOSPHATASE 113 IU/L (42-121); ALT ALANINE AMINOTRANSFERASE 12 IU/L (10-60); AST ASPARTATE AMINOTRANSFERASE 22 IU/L (10-42); BILIRUBIN,TOTAL 0.4 mg/dL (0.2-1.0); BUN - BLOOD UREA NITROGEN 27 mg/dL (6-20); CALCIUM 9.6 mg/dL (8.5-10.3); CARBON DIOXIDE - CO2 25 mmol/L (21-32); CHLORIDE 98 mmol/L (101-111); CREATININE 1.5 mg/dL (0.6-1.3); GFR - MDRD 55 (>89); GLUCOSE 106 mg/dL (74-104); LIPASE < 10 U/L (11-82); POTASSIUM 3.6 mmol/L (3.5-4.5); SODIUM 133 mmol/L (135-145)
[2023-07-18 15:15] LABS: PHENYTOIN (DILANTIN) < 0.5 ug/mL
[2023-07-18 15:26] LABS: BAND NEUTROPHILS % (MANUAL) 3 %; DIFFERENTIAL COMMENT MANUAL DIFFERENTIAL; LYMPHOCYTES # (MANUAL) 2.9 10^3/uL (1.5-3.5); LYMPHOCYTES % (MANUAL) 6 %; MONOCYTES # (MANUAL) 1.9 10^3/uL (0.0-1.0); NEUTROPHILS # (MANUAL) 19.4 10^3/uL (1.5-6.6); PLATELET ESTIMATE, MANUAL NORMAL (130-450,000) (NORMAL); PLATELET MORPHOLOGY NORMAL APPEARANCE (NORMAL); RBC MORPHOLOGY (MULTIPLE) NORMAL APPEARANCE (NORMAL); REACTIVE LYMPHS % (MANUAL) 6 %
--- NOTE | 2023-07-18 16:07 | MRI Report ---
PROCEDURE: BRAIN WO INDICATIONS: cva sx TECHNIQUE: Noncontrast axial T1 spin echo, axial T2 fast spin echo, sagittal and axial FLAIR, coronal T2 fast sp in echo, axial gradient echo, axial diffusion and ADC through the brain. COMPARISON: CT of head, CTA and neck July 18, 2023, CT head CTA neck March 10, 2023 FINDINGS: Image quality: Excellent. CSF Spaces: Basal cisterns are patent. No extra-axial fluid collections. Ventricles are normal in size and shape. Brain: There is confluent T2/FLAIR hyperintensities throughout the pericallosal white matter extendin g through the basal ganglia. There is diffuse parenchymal volume loss with sulcal enlargement and exp ansion of the CSF containing spaces. No intracranial masses or hemorrhage. Benoit/white matter interf erickson is normal. Brainstem appears normal. Diffusion-weighted images demonstrate no acute ischemic in sult. No chronic ischemic insults. Normal intravascular flow voids are present. Skull and face: Calvarium has normal marrow signal. Orbits appear normal. Sinuses: Sinuses and mastoids are clear. IMPRESSION: 1.Confluent T2/FLAIR changes consistent with chronic microvascular disease. 2.No restricted diffusion to indicate ongoing ischemia. Reviewed by: Luis E Edgar MD on 07/18/2023 3:06 PM [place] Approved by: Luis E Edgar MD on 07/18/2023 3:06 PM [facility] Station ID: [id number]
--- NOTE | 2023-07-18 16:55 | XRAY Report ---
PROCEDURE: Chest 1 View X-Ray INDICATIONS: leukocytosis TECHNIQUE: One view of the chest was acquired. COMPARISON: Chest x-ray, 03/11/2023. FINDINGS: Surgical changes and devices: None. Lungs and pleura: Subtle bilateral lower lobe infiltrates. No pleural effusions or pneumothorax. Mediastinum: Mediastinal contours appear normal. Heart size is normal. Bones and chest wall: No suspicious bony lesions. Overlying soft tissues appear unremarkable. IMPRESSION: Subtle bilateral lower lobe infiltrate suspicious for pneumonia. Reviewed by: Sarah Lyon MD on 07/18/2023 4:54 PM PST Approved by: Sarah Lyon MD on 07/18/2023 4:54 PM PST Station ID: [id number]
[2023-07-18] MEDS ORDERED: iohexoL-300 100 ML VIAL IVP ONE (17:11)
[2023-07-18] MEDS ORDERED: cefTRIAXone 1 GM VIAL IVP STA (17:22)
[2023-07-18] MEDS ORDERED: AZITHROMYCIN INJ 500 MG in SODIUM CHLORIDE 0.9% 250 ML IV STA (17:22)
[2023-07-18] MEDS ORDERED: ACETAMINOPHEN 325 MG TABLET PO PRN (17:32)
[2023-07-18] MEDS ORDERED: oxyCODONE 5 MG TABLET PO PRN (17:32)
[2023-07-18] MEDS ORDERED: ONDANSETRON 4 MG/2 ML VIAL IVP PRN (17:32)
[2023-07-18] MEDS ORDERED: SODIUM CHLORIDE FLUSH 0.9% 10 ML SYRINGE IVP PRN (17:32)
[2023-07-18] MEDS ORDERED: ONDANSETRON ODT 4 MG TABLET TL PRN (17:32)
[2023-07-18] MEDS ORDERED: amLODIPine 5 MG TABLET PO STA (17:35)
[2023-07-18 17:40] LABS: BILIRUBIN,URINE NEGATIVE (NEGATIVE); GLUCOSE, URINE (UA) NEGATIVE (NEGATIVE); KETONES,URINE (UA) NEGATIVE (NEGATIVE); LEUKOCYTE ESTERASE, URINE SMALL (NEGATIVE); NITRITE,URINE NEGATIVE (NEGATIVE); OCCULT BLOOD,URINE SMALL (NEGATIVE); PH,URINE 5.5 PH (5.0-7.5); PROTEIN,URINE 30 mg/dL (NEGATIVE); UROBILINOGEN,URINE 0.2 (NORMAL) E.U./dL (NORMAL)
[2023-07-18 17:44] LABS: CLARITY,URINE HAZY (CLEAR)
--- NOTE | 2023-07-18 17:45 | HISTORY & PHYSICAL EXAMINATION ---
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 He was seen in our hospital and admitted for a grand mall seizure June 2014. He then presented to our emergency room in March 2023 with a left facial droop that was worse than his chronic facial droop. He was eating dinner when he had a choking episode and that is when the family noticed the worsening left facial droop. He was identified as having a possible stroke so he did undergo TNK and airlifted to [place]. Complications included an intraventricular bleed but there is no interventions required. He was subsequently discharged home. Today he presents again with fever, slow to respond to questions, and again worse left facial droop. He has not had any falls. He is not on any blood thinners. Vitals in the ER did not have a fever. He was 36.9. Blood pressure 160/89. Respirations 16 and he was 96% on room air. On examination he did have a left facial droop and both legs were weak just not 1. Workup ensued for possible new stroke and a CAT scan showed an asymmetrical basal ganglia calcification where you could not rule out a small hemorrhage. But [facility] neurologist were consulted from telestroke and they feel that this is over read and that this is simple calcifications no bleeding. The patient also cannot get TNK because of his previous head bleed. An MRI was suggested and that was normal and he has age-related changes but no acute stroke. As such and continued workup for his altered mental status they noted that he had a slight rise in his creatinine of 1.5 from his baseline 1.1. BUN is usually elevated and it was 27 and stable. White cell count is elevated to 24.3 thousand and was 5.9 in March. His chest x-ray shows subtle bilateral lower lobe infiltrates suspicious for pneumonia. As such, after discussion with the ER provider, we think this patient may have had some aspiration, altered mental status, and now comes in with pneumonia. I will be admitting the patient to inpatient status. History - Past Medical History Cardiovascular: reports: Hypertension Neuro: reports: Dementia, CVA, Seizure disorder GI: reports: GERD : reports: Incontinence Psych: reports: Depression, Anxiety Musculoskeletal: reports: Chronic back pain MRSA Hx?: No - Past Surgical History General: reports: Bowel surgery - Family & Social History Family History Comment/Other: Dad 74 of ?lung cancer. Mom 101. 3 of them 2 alive. 1 of ? cause. 2 kids healthy. Living arrangement: At home Living Situation: With spouse/s.o. Social History Notes: Born in [facility]. [employer] for 28 years. [employer] office. [id number] history. Smoked a pack a day. Stopped 10 years ago. Drink 1-2 drinks a day. stopped about 10 years ago. Retired . Lives with his in their own home. 2 kids. They live nearby. - POLST Patient has POLST: No Meds/Allgy - Home Medications Home Medications: Ambulatory Orders Medication Instructions Recorded Confirmed Cefdinir 300 mg PO BID #20 cap 07/18/21 FLUoxetine [PROzac] 30 mg PO DAILY 07/18/21 07/18/21 Felodipine [Felodipine ER] 10 mg PO DAILY 07/18/21 07/18/21 Ferrous Sulfate 325 mg PO DAILY 07/18/21 07/18/21 Levetiracetam [Keppra] 500 mg PO BID 07/18/21 07/18/21 Lisinopril [Zestril] 20 mg PO DAILY 07/18/21 07/18/21 Mirtazapine 30 mg PO DAILY 07/18/21 07/18/21 Omeprazole Magnesium 20 mg PO DAILY 07/18/21 07/18/21 Phenytoin [Dilantin] 190 mg PO DAILY 07/18/21 07/18/21 metroNIDAZOLE [Flagyl] 500 mg PO BID 10 Days #20 tablet 07/18/21 - Allergies Allergies/Adverse Reactions: Allergies Allergy/AdvReac Type Severity Reaction Status Date / Time No Known Drug Allergies Allergy Verified 03/11/23 00:46 Prior Level of Functionality: uses a walker. can feed self and occ needs help w dressing. daughter and son help. eats well. Exam - Vital Signs Reviewed Vital Signs: Yes Vital Signs: Vital Signs x48h Temp Pulse Resp BP Pulse Ox 07/18/23 17:24 36.4 C L 102 H 20 184/90 H 98 07/18/23 14:50 36.0 C L 98 16 160/89 H 96 - Physical Exam General Appearance: positive: No acute distress (Thin black male, quietly watching TV.), Alert, Other (Memory loss. Tells me he retired from the [employer] 2 years ago and that he was just in his hometown of [place] last week.) Eyes Bilateral: positive: PERRL, EOMI ENT: positive: Pharynx nml, No signs of dehydration Neck: positive: No JVD. negative: Stiff neck Respiratory: positive: No respiratory distress, Rhonchi. negative: Wheezes, Rales Cardiovascular: positive: Regular rate & rhythm, Systolic murmur Peripheral Pulses: positive: 1+ Abdomen: positive: Non-tender, No organomegaly, Nml bowel sounds Skin: positive: Warm, Dry Extremities: positive: Full ROM, No pedal edema Neurologic/Psychiatric: positive: CN's nml (2-12) (Wrinkles across his forehead are symmetrical. Nasolabial folds symmetrical. Speech function intact. Tongue midline.), Motor nml (He is using his left arm to lift up to 1 L water canister we give to patients. I watched him take it off the bedside table, bring it to his mouth to suck on a straw, and then put it back on the table using his left arm. He can move both legs, wiggle his toes, barely lift them off the bed where the), Disoriented to place, Disoriented to time Conclusion/Plan - Problem List (1) Metabolic encephalopathy Conclusion/Plan: Due to infection. No new medications.Manifested as confusion, slight left facial droop. While I do find him with severe memory loss, he does not appear confused and there is no facial droop on exam right now Plan: Inpatient status Treatment for the cause of the infection which is pneumonia Continue to support the patient with IV fluids and antibiotics and monitor for worsening encephalopathy (2) Pneumonia Conclusion/Plan: This gentleman has a history of seizures, and was witnessed choking at the tab le. He may have had aspiration causing the current episode of pneumonia or he could have community-acquired pneumonia. Plan: Blood cultures already done Sputum cultures ordered by me I will continue Rocephin for 5 days. And azithromycin for 2 more days since he has received both of those doses Incentive spirometry As needed albuterol Qualifiers: Pneumonia type: due to unspecified organism Laterality: bilateral Lung location: lower lobe of lung Qualified Code(s): J18.9 - Pneumonia, unspecified organism (3) Vascular dementia Conclusion/Plan: He is describes the patient to walks with a walker, is able to do most of his activities of daily living on his own but needs help with toileting. He usually recognizes his family and is disoriented to time and place. Currently with an acute change because of his illness. His home meds are listed as Prozac and mirtazapine. Those will be resumed. Qualifiers: Dementia severity: moderate (4) Hypertension Conclusion/Plan: Stroke has been ruled out with consults was telestroke, CTs, and MRIs. He is on felodipine at home and that is nonformulary for us As such I will resume Zestril 20 mg a day, and change his calcium channel brisa to Norvasc 10 mg a day while here. Aim for blood pressure less than 140/90 Qualifiers: Hypertension type: primary hypertension Qualified Code(s): I10 - Essential (primary) hypertension (5) Seizure disorder Conclusion/Plan: Current medication list put in by nursing and ER states that he is on both Keppra and Dilantin. I will resume both of those medications while here. - Lab Results Lab results reviewed: Yes Michael Bones: 07/18/23 14:43 07/18/23 14:43 - Diagnostic Imaging Results Diagnostic Imaging Results: positive: Final report reviewed Core Measures - Anticipated LOS I expect patient to be DC'd or transferred within 96 hours.: Yes - DVT/VTE - Prophylaxis VTE/DVT Prophylaxis med ordered at admit?: Yes
[2023-07-18 17:47] LABS: BACTERIA,URINE Many /HPF (None Seen); SQUAMOUS EPITHELIAL CELL,UR RARE Squamous (<= Few); WBC,URINE >25 /HPF (0-3)
[2023-07-18 19:25] LABS: B. PARAPERTUSSIS- RESP PCR PAN NOT DETECTED; B. PERTUSSIS- RESP PCR PANEL NOT DETECTED; C. PNEUMONIAE- RESP PCR PANEL NOT DETECTED; CORONAVIRUS 229E-RESP PCR NOT DETECTED; CORONAVIRUS HKU1-RESP PCR NOT DETECTED; CORONAVIRUS NL63-RESP PCR NOT DETECTED; CORONAVIRUS OC43-RESP PCR NOT DETECTED; HUMAN METAPNEUMOVIRUS NOT DETECTED; INFLUENZA A- RESP PCR PANEL NOT DETECTED; INFLUENZA B - RESP PCR PANEL NOT DETECTED; M. PNEUMONIAE- RESP PCR PANEL NOT DETECTED; PARAINFLUENZA VIRUS 1 NOT DETECTED; PARAINFLUENZA VIRUS 2 NOT DETECTED; PARAINFLUENZA VIRUS 3 NOT DETECTED; PARAINFLUENZA VIRUS 4 NOT DETECTED; RHINOVIRUS/ENTEROVIRUS NOT DETECTED; RSV- RESP PCR PANEL NOT DETECTED; SARS-CoV-2 -RESP PCR PANEL NOT DETECTED
[2023-07-18] MEDS: SODIUM CHLORIDE 0.9% 1,000 ML IV SCH (19:31)
[2023-07-18] MEDS ORDERED: levETIRAcetam 100 MG/ML 473ML BOTTLE PO SCH (21:00)
[2023-07-18] MEDS: levETIRAcetam 250 MG TABLET PO SCH (21:51)
[2023-07-18] MEDS: SODIUM CHLORIDE FLUSH 0.9% 10 ML SYRINGE IVP SCH (23:45)
[2023-07-19] MEDS: SODIUM CHLORIDE 0.9% 1,000 ML IV SCH ×2 (05:26→15:43)
[2023-07-19 06:09] LABS: BASOPHILS % (AUTO) 0.2 %; EOSINOPHILS # (AUTO) 0.1 10^3/uL (0.0-0.7); EOSINOPHILS % (AUTO) 0.3 %; HCT - HEMATOCRIT 37.3 % (42.0-52.0); HGB - HEMOGLOBIN 12.2 g/dL (14.0-18.0); LYMPHOCYTES % (AUTO) 5.6 %; MEAN CORPUSCULAR HEMOGLOBIN 29.3 pg (27.0-31.0); MEAN CORPUSCULAR HGB CONC 32.7 g/dL (32.0-36.0); MEAN CORPUSCULAR VOLUME 89.4 fL (80.0-94.0); MEAN PLATELET VOLUME 11.8 fL (7.4-11.4); MONOCYTES # (AUTO) 0.9 10^3/uL (0.0-1.0); MONOCYTES % (AUTO) 5.3 %; NEUTROPHILS # (AUTO) 15.3 10^3/uL (1.5-6.6); NEUTROPHILS % (AUTO) 88.1 %; PLT - PLATELET COUNT 154 10^3/uL (130-450); RED BLOOD COUNT 4.17 10^6/uL (4.70-6.10); RED CELL DISTRIBUTION WIDTH 14.6 % (12.0-15.0); WHITE BLOOD COUNT 17.3 x10^3/uL (4.8-10.8)
[2023-07-19 06:23] LABS: CALCIUM 8.9 mg/dL (8.5-10.3); CREATININE 1.3 mg/dL (0.6-1.3); POTASSIUM 3.6 mmol/L (3.5-4.5)
[2023-07-19] MEDS ORDERED: PHENYTOIN CHEW 50 MG TABLET PO SCH (09:00)
[2023-07-19] MEDS ORDERED: cefTRIAXone 1 GM in SODIUM CHLORIDE 0.9% MINIBAG 100 ML IV SCH (09:00)
[2023-07-19] MEDS: AZITHROMYCIN INJ 500 MG in SODIUM CHLORIDE 0.9% 250 ML IV SCH (09:25)
[2023-07-19] MEDS: FLUoxetine 10 MG CAPSULE PO SCH (09:28)
[2023-07-19] MEDS: lisinopriL 20 MG TABLET PO SCH (09:28)
[2023-07-19] MEDS: levETIRAcetam 250 MG TABLET PO SCH ×2 (09:28→21:55)
[2023-07-19] MEDS: ENOXAPARIN 40 MG/0.4 ML SYRINGE SUBQ SCH (09:41)
[2023-07-19] MEDS: SODIUM CHLORIDE FLUSH 0.9% 10 ML SYRINGE IVP SCH ×2 (11:22→15:46)
--- NOTE | 2023-07-19 12:59 | PROVIDER PROGRESS NOTE ---
Progress Note July 19, 2023 12:56 PM Mr. Keller was up eating breakfast this morning and eating lunch. Very slow to feed himself because of just mechanical difficulties of coordinating using utensils and bringing them to his mouth. Watching TV with the sound off. Says he likes it that way. Says he is not in that much pain. Oriented to self. He cannot tell me where he is, or why he is here. He cannot say that he remembers me from meeting me yesterday. Hypothermic at 36.0. Has not had a fever. Heart rate 99. Blood pressure 138/83. Respirations 16. 97% on room air. A cachectic black male who is 5 foot 4 inches tall, 50.5 kg. Psychomotor slowing with delayed reaction to my questions but appropriate and is answers outside of the fact that he is disoriented Neck is supple Lungs are clear with diminished breath sounds at the bases. At one point, while swallowing, he developed phlegm in his throat but is able to cough it up. No labored respiration. He has a regular rate and rhythm. In the ER he was tachycardic to about 100- 110. Systolic ejection murmur. Abdomen is soft, nontender, quiet bowel sounds. Bowel movement yesterday and bowel movement today. Canela catheter draining urine. 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 Some of the deformity is a thick make it difficult for him to feed himself. Neurologically oriented to self. I am not seeing the left facial droop that was reported in the ER. The wrinkles across his forehead are symmetrical. Nasolabial folds are symmetrical. He uses both hands to feed himself and is moving both of them slowly and with difficulty due to lack of good coordination. He can lift his legs off the bed but cannot hold him up for more than a second. Lab: BMP is normal today. Yesterday he was hyponatremic with a low chloride. Today those are normal. BUN is 28 today where it was 27 yesterday. Creatinine is normal today at 1.3 and it was 1.5 yesterday. He may have had mild dehydration and now improved with our IV fluids. Glucose is 91. White cell count has come down to 17.3 thousand from the 24 it was yesterday.So he is responding to our antibiotics and IV fluids. Hemoglobin is down to 12.2 from 14.2.No GI bleed and most likely dilution from hydration Urine culture is growing E. coli Blood cultures are growing gram-negative bacilli and PCR identifies it as E. coli Conclusion/Plan - Problem List (1) Metabolic encephalopathy Conclusion/Plan: Due to infection. No new medications. Manifested as confusion, slight left facial droop. I admitted him in the evening after being in the ER all day. His left facial droop was gone by my exam. Today left facial droop is not present today. I do find an elderly gentleman with dementia and psychomotor slowing. I do not know his baseline. But describes him as able to feed himself, get up and walk in his house with a walker slowly.Today is day #2 of hospitalization. Most likely his encephalopathy was from aspiration as well as UTI. I am really not getting a good idea of his baseline. Family has not been in today. (2) E coli UTI with E coli bactermia Already on Rocephin dose #2 for pneumonia. Will switch the Rocephin to p.o. Levaquin to cover the pneumonia as well as urine. (2) Pneumonia Conclusion/Plan: This gentleman has a history of seizures, and was witnessed choking at the table. He may have had aspiration causing the current episode of pneumonia or he could have community-acquired pneumonia. He is on azithromycin dose #2, and ceftriaxone dose #2 for pneumonia. Plan: Complete azithromycin dose #3 on July 20. Switch him over to Levaquin today because of the E. coli. The Levaquin will be p.o. Qualifiers: Pneumonia type: due to unspecified organism Laterality: bilateral Lung location: lower lobe of lung Qualified Code(s): J18.9 - Pneumonia, unspecified organism (3) Vascular dementia Conclusion/Plan: His describes the patient As walking with a walker, is able to do most of his activities of daily living on his own but needs help with toileting. He usually recognizes his family and is disoriented to time and place.I am asking nursing to get him out of bed. We are going to see how well he walks with a walker. If he is not able to mobilize, I will ask PT and OT to see him tomorrow. PT is not available today. He is awake, responsive. I have already resumed his home meds of Prozac and mirtazapine. I am hoping that if he is ambulatory today. It is evaluated by PT tomorrow and cleared, he can go home tomorrow. Qualifiers: Dementia severity: moderate (4) Hypertension Conclusion/Plan: Stroke has been ruled out with consults was telestroke, CTs, and MRIs. I have resumed Zestril 20 mg a day and substituted felodipine with Norvasc 10 mg a day. Blood pressure is 138/83. Yesterday he was 138/79, 154/92. These are acceptable, and I will not be changing his meds Qualifiers: Hypertension type: primary hypertension Qualified Code(s): I10 - Essential (primary) hypertension (5) Seizure disorder Conclusion/Plan: Current medication list put in by nursing and ER states that he is on both Keppra and Dilantin. I resumed both of those medications on admission. However today's reconciled list done by pharmacy shows that he is not on Dilantin. As such I will discontinue the Dilantin and continue the Keppra.
[2023-07-19] MEDS: levoFLOXacin 250 MG TABLET PO SCH (14:32)
[2023-07-20] MEDS: SODIUM CHLORIDE 0.9% 1,000 ML IV SCH ×2 (02:14→16:49)
[2023-07-20] MEDS: SODIUM CHLORIDE FLUSH 0.9% 10 ML SYRINGE IVP SCH ×3 (05:29→16:48)
[2023-07-20 05:55] LABS: BASOPHILS % (AUTO) 0.3 %; EOSINOPHILS % (AUTO) 0.3 %; HGB - HEMOGLOBIN 10.9 g/dL (14.0-18.0); LYMPHOCYTES # (AUTO) 1.2 10^3/uL (1.5-3.5); LYMPHOCYTES % (AUTO) 15.3 %; MEAN CORPUSCULAR VOLUME 87.8 fL (80.0-94.0); MEAN PLATELET VOLUME 11.4 fL (7.4-11.4); MONOCYTES # (AUTO) 0.8 10^3/uL (0.0-1.0); MONOCYTES % (AUTO) 9.8 %; NEUTROPHILS # (AUTO) 5.9 10^3/uL (1.5-6.6); NEUTROPHILS % (AUTO) 73.7 %; PLT - PLATELET COUNT 168 10^3/uL (130-450); RED BLOOD COUNT 3.76 10^6/uL (4.70-6.10); RED CELL DISTRIBUTION WIDTH 14.6 % (12.0-15.0)
[2023-07-20 06:07] LABS: CALCIUM 8.5 mg/dL (8.5-10.3); CREATININE 1.2 mg/dL (0.6-1.3); POTASSIUM 3.5 mmol/L (3.5-4.5)
[2023-07-20] MEDS: AZITHROMYCIN INJ 500 MG in SODIUM CHLORIDE 0.9% 250 ML IV SCH (08:22)
[2023-07-20] MEDS: lisinopriL 20 MG TABLET PO SCH (08:23)
[2023-07-20] MEDS: FLUoxetine 10 MG CAPSULE PO SCH (08:23)
[2023-07-20] MEDS: levoFLOXacin 250 MG TABLET PO SCH (08:23)
[2023-07-20] MEDS: levETIRAcetam 250 MG TABLET PO SCH ×2 (08:23→21:03)
[2023-07-20] MEDS: ENOXAPARIN 40 MG/0.4 ML SYRINGE SUBQ SCH (08:24)
[2023-07-20] MEDS: SACCHAROMYCES BOULARDII 250 MG CAPSULE PO SCH (16:48)
[2023-07-20] MEDS: MULTIVITAMIN W/MINERALS TABLET PO SCH (16:48)
--- NOTE | 2023-07-20 17:07 | PROVIDER PROGRESS NOTE ---
Subjective - Prog Note Date Prog Note Date: 07/20/23 Prog Note Time: 17:15 - Subjective Subjective: He does not have an insight to tell me if he is better or worse. He does not even know why he is here or where he is. He does ask where his is. I a sked him about pain and he denies any chest pain, cough, shortness of breath. came in shortly there after to ask a few questions. Current Medications - Current Medications Current Medications: Active Medications Acetaminophen (Acetaminophen 325 Mg Tablet) 650 mg PO Q4HR PRN PRN Reason: Pain 1 to 4, or Fever Enoxaparin Sodium (Enoxaparin 40 Mg/0.4 Ml Syringe) 40 mg SUBQ DAILY [facility] Last Admin: 07/20/23 08:24 Dose: 40 mg Fluoxetine HCl (Fluoxetine 10 Mg Capsule) 30 mg PO DAILY [facility] Last Admin: 07/20/23 08:23 Dose: 30 mg Sodium Chloride (Normal Saline 0.9%) 1,000 mls @ 100 mls/hr IV .Q10H [facility] Last Admin: 07/20/23 16:49 Dose: 100 mls/hr Levetiracetam (Levetiracetam 250 Mg Tablet) 500 mg PO BID [facility] Last Admin: 07/20/23 08:23 Dose: 500 mg Levofloxacin (Levofloxacin 250 Mg Tablet) 500 mg PO DAILY [facility] Last Admin: 07/20/23 08:23 Dose: 500 mg Lisinopril (Lisinopril 20 Mg Tablet) 20 mg PO DAILY [facility] Last Admin: 07/20/23 08:23 Dose: 20 mg Multivitamins/Minerals (Multivitamin W/Minerals Tablet) 1 tab PO QDDINNER [facility] Last Admin: 07/20/23 16:48 Dose: 1 tab Ondansetron HCl (Ondansetron Odt 4 Mg Tablet) 4 mg TL Q6HR PRN PRN Reason: Nausea / Vomiting Ondansetron HCl (Ondansetron 4 Mg/2 Ml Vial) 4 mg IVP Q6HR PRN PRN Reason: Nausea / Vomiting Oxycodone HCl (Oxycodone 5 Mg Tablet) 5 mg PO Q4HR PRN PRN Reason: Pain 5 to 7 Saccharomyces Boulardii (Saccharomyces Boulardii 250 Mg Capsule) 250 mg PO BIDWM [facility] Last Admin: 07/20/23 16:48 Dose: 250 mg Sodium Chloride (Sodium Chloride Flush 0.9% 10 Ml Syringe) 10 ml IVP PRN PRN PRN Reason: NEEDED PER PROVIDER ORDERS Sodium Chloride (Sodium Chloride Flush 0.9% 10 Ml Syringe) 10 ml IVP 0100,0900,1700 [facility] Last Admin: 07/20/23 16:48 Dose: 10 ml FLUoxetine [PROzac] 20 mg PO DAILY 07/18/21 Felodipine [Felodipine ER] 10 mg PO DAILY 07/18/21 Ferrous Sulfate 325 mg PO DAILY 07/18/21 Levetiracetam [Keppra] 1,000 mg PO BID 07/18/21 Lisinopril [Zestril] 40 mg PO DAILY 07/18/21 Mirtazapine 30 mg PO QPM 07/18/21 Omeprazole Magnesium 20 mg PO DAILY 07/18/21 Chlorthalidone 25 mg PO DAILY 07/19/23 Loratadine [Claritin] 10 mg PO DAILY 07/19/23 Objective - Vital Signs/Intake & Output Reviewed Vital Signs: Yes Vital Signs: Vital Signs x48h Temp Pulse Pulse Resp BP BP Pulse Ox 07/20/23 17:04 152/86 H 07/20/23 16:52 77 18 186/104 H 94 07/20/23 15:54 36.8 C 73 18 204/101 H 86 L Intake & Output: Intake & Output 07/17/23 07/18/23 07/19/23 07/20/23 23:59 23:59 23:59 23:59 Intake Total 650 3741.667 2100 Output Total 175 700 Balance 475 3041.667 2100 - Objective General Appearance: positive: No acute distress, Alert, Other (Thin frail appearing male with cachexia. Psychomotor slowing. Oriented to self.) Eyes Bilateral: positive: PERRL, EOMI ENT: positive: No signs of dehydration Neck: positive: No JVD. negative: Stiff neck Respiratory: positive: No respiratory distress. negative: Wheezes, Rales, Rhonchi Cardiovascular: positive: Regular rate & rhythm, Systolic murmur Abdomen: positive: Non-tender, No organomegaly, Nml bowel sounds, No distention, Other (Psychomotor slowing. It takes him a very long time to feed himself. I watched him slowly bring up orange juice to his mouth this morning and drink it. Slowly put the glass back down. Slowly bring eggs to his mouth. I think it takes him a very long to finish 1 meal. down 6 kg from last time here) Skin: positive: Warm, Dry Extremities: positive: Full ROM, No pedal edema Neurologic/Psychiatric: positive: CN's nml (2-12), Disoriented to person. negative: Motor nml (Week. It is a real effort for him to feed himself. He can do it but very slowly. Does not move his legs very much either. I cannot say that his deficits are focal and they appear more generalized.) - Lab Results Fish Bones: 07/20/23 05:22 07/20/23 05:22 Other Labs: Lab Results x24hrs 07/20/23 07/20/23 Range/Units 05:22 05:22 WBC 8.0 (4.8-10.8) x10^3/uL RBC 3.76 L (4.70-6.10) 10^6/uL Hgb 10.9 L (14.0-18.0) g/dL Hct 33.0 L (42.0-52.0) % MCV 87.8 (80.0-94.0) fL MCH 29.0 (27.0-31.0) pg MCHC 33.0 (32.0-36.0) g/dL RDW 14.6 (12.0-15.0) % Plt Count 168 (130-450) 10^3/uL MPV 11.4 (7.4-11.4) fL Neut # (Auto) 5.9 (1.5-6.6) 10^3/uL Lymph # (Auto) 1.2 L (1.5-3.5) 10^3/uL [place] # (Auto) 0.8 (0.0-1.0) 10^3/uL Eos # (Auto) 0.0 (0.0-0.7) 10^3/uL Baso # (Auto) 0.0 (0.0-0.1) 10^3/uL Absolute Nucleated RBC 0.00 x10^3/uL Nucleated RBC % 0.0 /100WBC Sodium 139 (135-145) mmol/L Potassium 3.5 (3.5-4.5) mmol/L Chloride 110 (101-111) mmol/L Carbon Dioxide 22 (21-32) mmol/L Anion Gap 7.0 (6-13) BUN 18 (6-20) mg/dL Creatinine 1.2 (0.6-1.3) mg/dL Estimated GFR (MDRD) 72 L (>89) Glucose 93 (74-104) mg/dL Calcium 8.5 (8.5-10.3) mg/dL ABX Reporting Has patient been on IV antibiotics over the past 48 hours?: No Assessment/Plan - Problem List (1) Metabolic encephalopathy Impression: Conclusion/Plan - Problem List (1) Metabolic encephalopathy Conclusion/Plan: Due to infection. No new medications. Manifested as confusion, slight left facial droop. I admitted him in the evening after being in the ER all day. His left facial droop was gone by my exam. 07/19 his left facial droop is not present today. I do find an elderly gentleman with dementia and psychomotor slowing. But describes him as able to feed himself, get up and walk in his house with a walker slowly.Today is day #3 of hospitalization. Most likely his encephalopathy was from aspiration as well as UTI. His was in today. Although he is at baseline, she was concerned about his blood pressure. It was being read as over 200 systolic. But the cuff was a large cuff on a relatively slender man. I had the nurse read do it manually with the correct size cuff and his blood pressure is 156. So I reassured her that his blood pressure is controlled. I do believe he is stable enough for discharge tomorrow morning. She says that it is not convenient for her because she has other things that she has to do. She will be getting some big news and it affects her ability to pick him up. I explained that she can always appeal the discharge, or sign an ABN. She says that she will just make arrangements to have him picked up.I did offer to see if he may be could stay at a long term to get stronger. She says no. She is going to take him home and she never wants to put him in a long term. (2) E coli UTI with E coli bactermia He finished 2 days of Rocephin for pneumonia. On July 19, I switched him to p.o. Levaquin since it would cover both pneumonia and a UTI. He would take Levaquin until July 24. (2) Pneumonia Conclusion/Plan: This gentleman has a history of seizures, and was witnessed choking at the table. He may have had aspiration causing the current episode of pneumonia or he could have community-acquired pneumonia. Today he finished 3 doses of IV azithromycin. He completed 2 days of IV Rocephin. Switch to p.o. Levaquin July 19. Completes Levaquin on July 24. Qualifiers: Pneumonia type: due to unspecified organism Laterality: bilateral Lung location: lower lobe of lung Qualified Code(s): J18.9 - Pneumonia, unspecified organism (3) Vascular dementia Conclusion/Plan: His describes the patient As walking with a walker, is able to do most of his activities of daily living on his own but needs help with toileting. He usually recognizes his family and is disoriented to time and place.Tonight he is speaking to his . Recognizes her. Does not know where he is. Does not remember me from seeing him every day. He has [employer]. I have written an order for [facility] to resume therapy when he goes home tomorrow. Qualifiers: Dementia severity: moderate (4) Hypertension Conclusion/Plan: Stroke has been ruled out with consults was telestroke, CTs, and MRIs. I have resumed Zestril 20 mg a day and substituted felodipine with Norvasc 10 mg a day. Blood pressure is 138/83, 138/79, 154/92. Close to 4 PM, the nurse called me to tell me that his blood pressure was 204/101. And then it was 186/104. When I had him use the correct size cuff and do it manually the patient was actually in the 150s. is in the room. She was very concerned. I explained to her that elevated blood pressure associated with headache, stroke symptoms, shortness of breath, chest pain are very concerning. But her has no symptoms at this time. I do think that it was the wrong size cuff. Qualifiers: Hypertension type: primary hypertension Qualified Code(s): I10 - Essential (primary) hypertension (5) Seizure disorder Conclusion/Plan: Medication list put in by nursing in ER states that he is on both Keppra and Dilantin. I resumed both of those medications on admission. However 07/19 reconciled list done by pharmacy shows that he is not on Dilantin. So I stopped the Dilantin. He is only on Keppra. (3) Vascular dementia Qualifiers: Dementia severity: moderate (4) Hypertension Qualifiers: Hypertension type: primary hypertension Qualified Code(s): I10 - Essential (primary) hypertension
[2023-07-21] MEDS: SODIUM CHLORIDE 0.9% 1,000 ML IV SCH ×3 (02:11→23:50)
[2023-07-21] MEDS: SODIUM CHLORIDE FLUSH 0.9% 10 ML SYRINGE IVP SCH ×4 (02:27→23:52)
[2023-07-21 06:22] LABS: BASOPHILS % (AUTO) 0.4 %; EOSINOPHILS # (AUTO) 0.1 10^3/uL (0.0-0.7); HCT - HEMATOCRIT 31.1 % (42.0-52.0); HGB - HEMOGLOBIN 10.5 g/dL (14.0-18.0); LYMPHOCYTES % (AUTO) 18.8 %; MEAN CORPUSCULAR HEMOGLOBIN 29.4 pg (27.0-31.0); MEAN CORPUSCULAR HGB CONC 33.8 g/dL (32.0-36.0); MEAN CORPUSCULAR VOLUME 87.1 fL (80.0-94.0); MEAN PLATELET VOLUME 10.3 fL (7.4-11.4); MONOCYTES # (AUTO) 0.6 10^3/uL (0.0-1.0); MONOCYTES % (AUTO) 11.6 %; NEUTROPHILS # (AUTO) 3.5 10^3/uL (1.5-6.6); NEUTROPHILS % (AUTO) 67.2 %; PLT - PLATELET COUNT 174 10^3/uL (130-450); RED BLOOD COUNT 3.57 10^6/uL (4.70-6.10); RED CELL DISTRIBUTION WIDTH 14.4 % (12.0-15.0); WHITE BLOOD COUNT 5.2 x10^3/uL (4.8-10.8)
[2023-07-21 06:46] LABS: CALCIUM 8.7 mg/dL (8.5-10.3); POTASSIUM 3.3 mmol/L (3.5-4.5)
[2023-07-21] MEDS: FLUoxetine 10 MG CAPSULE PO SCH (08:43)
[2023-07-21] MEDS: levETIRAcetam 250 MG TABLET PO SCH ×2 (08:44→20:35)
[2023-07-21] MEDS: lisinopriL 20 MG TABLET PO SCH (08:44)
[2023-07-21] MEDS: SACCHAROMYCES BOULARDII 250 MG CAPSULE PO SCH ×2 (08:44→16:49)
[2023-07-21] MEDS: levoFLOXacin 250 MG TABLET PO SCH (08:45)
[2023-07-21] MEDS: ENOXAPARIN 40 MG/0.4 ML SYRINGE SUBQ SCH (08:45)
[2023-07-21] MEDS: MULTIVITAMIN W/MINERALS TABLET PO SCH (16:49)
--- NOTE | 2023-07-21 19:03 | PROVIDER PROGRESS NOTE ---
Assessment/Plan - Problem List (1) E coli bacteremia Assessment/Plan: He finished 2 days of Rocephin for pneumonia. On July 19, I switched him to p.o. Levaquin since it would cover both pneumonia and a UTI. Plan is to take Levaquin thru July 24. (2) E coli UTI Conclusion/Plan: Plan: As in #1 (3) Pneumonia Conclusion/Plan: This gentleman has a history of seizures, and was witnessed choking at the table. He may have had aspiration causing the current episode of pneumonia or he could have community-acquired pneumonia. Today he finished 3 doses of IV azithromycin. He completed 2 days of IV Rocephin. Switch to p.o. Levaquin July 19. Completes Levaquin on July 24. Qualifiers: Pneumonia type: due to unspecified organism Laterality: bilateral Lung location: lower lobe of lung Qualified Code(s): J18.9 - Pneumonia, unspecified organism (4) Vascular dementia Conclusion/Plan: His describes the patient As walking with a walker, is able to do most of his activities of daily living on his own but needs help with toileting. He usually recognizes his family and is disoriented to time and place.Tonight he is speaking to his . Recognizes her. Does not know where he is. Does not remember me from seeing him every day. He has [facility]. I have written an order for [facility] to resume therapy when he goes home tomorrow. Qualifiers: Dementia severity: moderate (5) Hypertension Conclusion/Plan: Stroke has been ruled out with consults was telestroke, CTs, and MRIs. I have resumed Zestril 20 mg a day and substituted felodipine with Norvasc 10 mg a day. Blood pressure is 138/83, 138/79, 154/92. Close to 4 PM, the nurse called me to tell me that his blood pressure was 204/101. And then it was 186/104. When I had him use the correct size cuff and do it manually the patient was actually in the 150s. is in the room. She was very concerned. I explained to her that elevated blood pressure associated with headache, stroke symptoms, shortness of breath, chest pain are very concerning. But her has no symptoms at this time. I do think that it was the wrong size cuff. Qualifiers: Hypertension type: primary hypertension Qualified Code(s): I10 - Essential (primary) hypertension (6) Seizure disorder Conclusion/Plan: Medication list put in by nursing in ER states that he is on both Keppra and Dilantin. I resumed both of those medications on admission. However 07/19 reconciled list done by pharmacy shows that he is not on Dilantin. So I stopped the Dilantin. He is only on Keppra. (7) Metabolic encephalopathy Conclusion/Plan: Due to infection. No new medications. Manifested as confusion, slight left facial droop. I admitted him in the evening after being in the ER all day. His left facial droop was gone by my exam. 07/19 his left facial droop is not present today. I do find an elderly gentleman with dementia and psychomotor slowing. But describes him as able to feed himself, get up and walk in his house with a walker slowly. Most likely his encephalopathy was from aspiration as well as UTI. His visited and said he was at his baseline. We thought he was stable enough for discharge. But she said that it was not convenient for her because she has other things that she has to do. She was explained that she can always appeal the discharge, or sign an ABN. She says that she will just make arrangements to have him picked up. We did offer to see if he could stay at a skilled nursing to get stronger. She said she is going to take him home and she never wants to put him in a skilled nursing. - Current Meds Current Meds: Current Medications Generic Name Dose Route Start Last Admin Trade Name Indigo PRN Reason Stop Dose Admin Enoxaparin Sodium 40 mg 07/19/23 09:00 07/21/23 08:45 Enoxaparin 40 Mg/0.4 Ml Syringe SUBQ 40 mg DAILY KUN Administration Fluoxetine HCl 30 mg 07/19/23 09:00 07/21/23 08:43 Fluoxetine 10 Mg Capsule PO 30 mg DAILY KUN Administration Sodium Chloride 1,000 mls @ 100 mls/hr 07/18/23 18:00 07/21/23 14:00 Normal Saline 0.9% IV 100 mls/hr .Q10H KUN Administration Levetiracetam 500 mg 07/18/23 22:00 07/21/23 08:44 Levetiracetam 250 Mg Tablet PO 500 mg BID KUN Administration Levofloxacin 500 mg 07/19/23 13:16 07/21/23 08:45 Levofloxacin 250 Mg Tablet PO 500 mg DAILY KUN Administration Lisinopril 20 mg 07/19/23 09:00 07/21/23 08:44 Lisinopril 20 Mg Tablet PO 20 mg DAILY KUN Administration Multivitamins/Minerals 1 tab 07/20/23 17:00 07/21/23 16:49 Multivitamin W/Minerals Tablet PO 1 tab QDDINNER KUN Administration Saccharomyces Boulardii 250 mg 07/20/23 17:00 07/21/23 16:49 Saccharomyces Boulardii 250 Mg Capsule PO 250 mg BIDWM KUN Administration Sodium Chloride 10 ml 07/19/23 01:00 07/21/23 16:49 Sodium Chloride Flush 0.9% 10 Ml Syringe IVP Not Given 0100,0900,1700 KUN - Lab Result Fish Bone Diagrams: 07/21/23 05:56 07/21/23 05:56 Subjective - Subjective Patient Reports: Resting Comfortably, No Complaints Objective Vital Signs: Vital Signs - 24 hr 07/21/23 07/21/23 07/21/23 02:28 07:55 15:48 Temperature 36.8 C 37.1 C 37.1 C Heart Rate [ 78 67 75 Brachial] Respiratory 16 18 16 Rate Blood Pressure 164/82 H 179/80 H [Left Brachial artery] Blood Pressure 140/60 H [Right Brachial artery] O2 Saturation 93 96 95 07/21/23 16:01 Temperature Heart Rate [ Brachial] Respiratory Rate Blood Pressure 146/70 H [Left Brachial artery] Blood Pressure [Right Brachial artery] O2 Saturation Oxygen O2 Source Room air I&O (Last 24 Hrs): Intake and Output Totals x24h 07/19/23 07/20/23 07/21/23 23:59 23:59 23:59 Intake Total 3741.667 3160 2535 Output Total 700 Balance 3041.667 3160 2535 General: Alert, Other (Minimally communicative) HEENT: EOMI, Mucous membr. moist/pink Neck: Supple, No JVD Neuro: Alert, Disoriented, Non Focal Respiratory: No respiratory distress, Breath sounds nml Abdomen: Normal bowel sounds, Soft, No tenderness Extremities: No clubbing, No edema, No tenderness/swelling - Results Results: Laboratory Results WBC 5.2 x10^3/uL (4.8-10.8) 07/21/23 05:56 RBC 3.57 10^6/uL (4.70-6.10) L 07/21/23 05:56 Hgb 10.5 g/dL (14.0-18.0) L 07/21/23 05:56 Hct 31.1 % (42.0-52.0) L 07/21/23 05:56 MCV 87.1 fL (80.0-94.0) 07/21/23 05:56 MCH 29.4 pg (27.0-31.0) 07/21/23 05:56 MCHC 33.8 g/dL (32.0-36.0) 07/21/23 05:56 RDW 14.4 % (12.0-15.0) 07/21/23 05:56 Plt Count 174 10^3/uL (130-450) 07/21/23 05:56 MPV 10.3 fL (7.4-11.4) 07/21/23 05:56 Neut # (Auto) 3.5 10^3/uL (1.5-6.6) 07/21/23 05:56 Lymph # (Auto) 1.0 10^3/uL (1.5-3.5) L 07/21/23 05:56 [place] # (Auto) 0.6 10^3/uL (0.0-1.0) 07/21/23 05:56 Eos # (Auto) 0.1 10^3/uL (0.0-0.7) 07/21/23 05:56 Baso # (Auto) 0.0 10^3/uL (0.0-0.1) 07/21/23 05:56 Absolute Nucleated RBC 0.00 x10^3/uL 07/21/23 05:56 Total Counted 100 07/18/23 14:43 Band Neuts % (Manual) 3 % (0-10) 07/18/23 14:43 Reactive Lymphs % (Man) 6 % 07/18/23 14:43 Abnorm Lymph % (Manual) 0 % 07/18/23 14:43 Nucleated RBC % 0.0 /100WBC 07/21/23 05:56 Neutrophils # (Manual) 19.4 10^3/uL (1.5-6.6) H 07/18/23 14:43 Lymphocytes # (Manual) 2.9 10^3/uL (1.5-3.5) 07/18/23 14:43 Monocytes # (Manual) 1.9 10^3/uL (0.0-1.0) H 07/18/23 14:43 Eosinophils # (Manual) 0.0 10^3/uL (0-0.7) 07/18/23 14:43 Basophils # (Manual) 0.0 10^3/uL (0-0.1) 07/18/23 14:43 Differential Comment MANUAL DIFFERENTIAL 07/18/23 14:43 Platelet Estimate NORMAL (130-450,000) (NORMAL) 07/18/23 14:43 Platelet Morphology NORMAL APPEARANCE (NORMAL) 07/18/23 14:43 RBC Morph Micro Appear NORMAL APPEARANCE (NORMAL) 07/18/23 14:43 PT 12.2 secs (9.9-12.6) 07/18/23 14:43 INR 1.1 (0.8-1.2) 07/18/23 14:43 Sodium 136 mmol/L (135-145) 07/21/23 05:56 Potassium 3.3 mmol/L (3.5-4.5) L 07/21/23 05:56 Chloride 108 mmol/L (101-111) 07/21/23 05:56 Carbon Dioxide 21 mmol/L (21-32) 07/21/23 05:56 Anion Gap 7.0 (6-13) 07/21/23 05:56 BUN 12 mg/dL (6-20) 07/21/23 05:56 Creatinine 1.0 mg/dL (0.6-1.3) 07/21/23 05:56 Estimated GFR (MDRD) 88 (>89) L 07/21/23 05:56 Glucose 96 mg/dL (74-104) 07/21/23 05:56 Lactic Acid 2.5 mmol/L (0.5-2.2) H 07/18/23 18:13 Calcium 8.7 mg/dL (8.5-10.3) 07/21/23 05:56 Total Bilirubin 0.4 mg/dL (0.2-1.0) 07/18/23 14:43 AST 22 IU/L (10-42) 07/18/23 14:43 ALT 12 IU/L (10-60) 07/18/23 14:43 Alkaline Phosphatase 113 IU/L (42-121) 07/18/23 14:43 Total Protein 8.0 g/dL (6.4-8.9) 07/18/23 14:43 Albumin 4.0 g/dL (3.2-5.5) 07/18/23 14:43 Globulin 4.0 g/dL (2.1-4.2) 07/18/23 14:43 Albumin/Globulin Ratio 1.0 (1.0-2.2) 07/18/23 14:43 Lipase < 10 U/L (11-82) L 07/18/23 14:43 Vitamin D 25-Hydroxy 34.6 ng/mL (30.0-100.0) 07/20/23 09:30 Urine Color YELLOW 07/18/23 17:13 Urine Clarity HAZY (CLEAR) 07/18/23 17:13 Urine pH 5.5 PH (5.0-7.5) 07/18/23 17:13 Ur Specific Dwarf 1.025 (1.002-1.030) 07/18/23 17:13 Urine Protein 30 mg/dL (NEGATIVE) H 07/18/23 17:13 Urine Glucose (UA) NEGATIVE mg/dL (NEGATIVE) 07/18/23 17:13 Urine Ketones NEGATIVE mg/dL (NEGATIVE) 07/18/23 17:13 Urine Occult Blood SMALL (NEGATIVE) H 07/18/23 17:13 Urine Nitrite NEGATIVE (NEGATIVE) 07/18/23 17:13 Urine Bilirubin NEGATIVE (NEGATIVE) 07/18/23 17:13 Urine Urobilinogen 0.2 (NORMAL) E.U./dL (NORMAL) 07/18/23 17:13 Ur Leukocyte Esterase SMALL (NEGATIVE) H 07/18/23 17:13 Urine RBC 6-10 /HPF (0-5) H 07/18/23 17:13 Urine WBC >25 /HPF (0-3) H 07/18/23 17:13 Ur Squamous Epith Cells RARE Squamous (<= Few) 07/18/23 17:13 Urine Bacteria Many /HPF (None Seen) H 07/18/23 17:13 Ur Microscopic Review INDICATED 07/18/23 17:13 Urine Culture Comments INDICATED 07/18/23 17:13 Nasal Adenovirus (PCR) NOT DETECTED 07/18/23 18:16 Nasal B. parapertussis DNA (PCR) NOT DETECTED 07/18/23 18:16 Nasal Coronavir 229E PCR NOT DETECTED 07/18/23 18:16 Nasal Coronavir HKU1 PCR NOT DETECTED 07/18/23 18:16 Nasal Coronavir NL63 PCR NOT DETECTED 07/18/23 18:16 Nasal Coronavir OC43 PCR NOT DETECTED 07/18/23 18:16 Nasal Enterovir/Rhinovir PCR NOT DETECTED 07/18/23 18:16 Nasal Influenza B PCR NOT DETECTED 07/18/23 18:16 Nasal Influenza A PCR NOT DETECTED 07/18/23 18:16 Nasal Parainfluen 1 PCR NOT DETECTED 07/18/23 18:16 Nasal Parainfluen 2 PCR NOT DETECTED 07/18/23 18:16 Nasal Parainfluen 3 PCR NOT DETECTED 07/18/23 18:16 Nasal Parainfluen 4 PCR NOT DETECTED 07/18/23 18:16 Nasal RSV (PCR) NOT DETECTED 07/18/23 18:16 Nasal B.pertussis DNA PCR NOT DETECTED 07/18/23 18:16 Nasal C.pneumoniae (PCR) NOT DETECTED 07/18/23 18:16 Venkata Human Metapneumo PCR NOT DETECTED 07/18/23 18:16 Nasal M.pneumoniae (PCR) NOT DETECTED 07/18/23 18:16 Nasal SARS-CoV-2 (PCR) NOT DETECTED 07/18/23 18:16 Phenytoin < 0.5 ug/mL 07/18/23 14:43
[2023-07-22] MEDS: levETIRAcetam 250 MG TABLET PO SCH (08:14)
[2023-07-22] MEDS: FLUoxetine 10 MG CAPSULE PO SCH (08:14)
[2023-07-22] MEDS: levoFLOXacin 250 MG TABLET PO SCH (08:14)
[2023-07-22] MEDS: SACCHAROMYCES BOULARDII 250 MG CAPSULE PO SCH (08:14)
[2023-07-22] MEDS: ENOXAPARIN 40 MG/0.4 ML SYRINGE SUBQ SCH (08:15)
[2023-07-22] MEDS: lisinopriL 20 MG TABLET PO SCH (08:15)
[2023-07-22] MEDS: SODIUM CHLORIDE FLUSH 0.9% 10 ML SYRINGE IVP SCH (08:16)
[2023-07-22] MEDS: SODIUM CHLORIDE 0.9% 1,000 ML IV SCH ×2 (13:31→14:28)
--- NOTE | 2023-07-22 15:22 | Discharge Plan ---
"Discharge Plan for SNF / [facility] - Discharge Plan And Transition Orders Problem Reviewed?: Yes Disposition: 03 SNF DC/Xfer Condition: Fair Allergies and Adverse Reactions: Allergies Allergy/AdvReac Type Severity Reaction Status Date / Time No Known Drug Allergies Allergy Verified 03/11/23 00:46 Health Concerns: Patient has vascular dementia, was admitted with worse confusion and found to be from UTI, bacteremia and pneumonia. He has nearly completed all his antibiotics. He requires rehab at SNF. Plan of Treatment: Continue BP and dementia meds, finish antibiotics, daily PT and OT. Care Goals: Improvement in symptoms and stabilization are the goals. Assessment: The is agreeable with the plan. - SNF / [facility] Transition Orders Admit to (Facility): [facility] Under the care of (Name): Jermain Christiansony Discharge Diagnosis: (1) E coli bacteremia He needs to take Levaquin thru July 24. (2) E coli UTI As in #1 (3) Pneumonia He completed 2 days of IV Rocephin. Switched Ceftriaxone to p.o. Levaquin and he should complete Levaquin on July 24. (4) Vascular dementia Dementia severity: moderate (5) Hypertension Stable on meds (6) Seizure disorder He is only on Keppra. (7) Metabolic encephalopathy Due to infection. Resolved Medicare Certification Statement: I certify that Post Hospital care home care is medically necessary on a continuing basis for any of the conditions for which she/he is receiving care during hospitalization. Notify PCP of admission and forward orders to primary provider for signature. Weight on admission and: Weekly Call PCP immediately if weight increases by: 5 kg Other Notification Orders: Call PCP immediately if patient develops dyspnea, chest pain/tightness or edema. House Bowel Program: Yes Additional Bowel Program Orders: If no BM after 2 days, nurse may give M.O.M. 30ml PO PRN and/or ducolax Supp 1 SC and/or FABIO 250mg P.O., and/or senna 1-2 tabs PO. On day 3 nurse may give repeat above order until residents constipation is resolved. Annual Influenza Vaccine (between Apr 10 and November 07): Yes Two-step PPD per [facility] [id number] or approved exception documents: Yes Treatments & Other Orders: Daily PT and OT Medication Orders: PLEASE REFER TO THE DISCHARGE MEDICATION LIST. Insulin Orders?: No - Medications New Prescriptions: Saccharomyces Boulardii [Florastor] 250 mg PO BID 2 Days #4 cap levoFLOXacin [Levofloxacin] 750 mg PO DAILY #2 tablet - Diet Type: No added salt Texture: Regular Liquids: Thin May have monthly special meal: Yes - Therapies | Activity Therapy: Evaluation | Treat if indicated: PT, OT Rehabilitation Potential: Maximize functional status Activity: Activity as Tolerated Weight Bearing: Full Weight Assistance Devices: Walker Follow Up: See PCP after discharge from SNF."
--- NOTE | 2023-07-22 15:38 | DISCHARGE SUMMARY ---
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 He was seen in our hospital and admitted for a grand mall seizure June 2014. He then presented to our emergency room in March 2023 with a left facial droop that was worse than his chronic facial droop. He was eating dinner when he had a choking episode and that is when the family noticed the worsening left facial droop. He was identified as having a possible stroke so he did undergo TNK and airlifted to [place]. Complications included an intraventricular bleed but there is no interventions required. He was subsequently discharged home. Today he presents again with fever, slow to respond to questions, and again worse left facial droop. He has not had any falls. He is not on any blood thinners. Vitals in the ER did not have a fever. He was 36.9. Blood pressure 160/89. Respirations 16 and he was 96% on room air. On examination he did have a left facial droop and both legs were weak just not 1. Workup ensued for possible new stroke and a CAT scan showed an asymmetrical basal ganglia calcification where you could not rule out a small hemorrhage. But tonight neurologist were consulted from telestroke and they feel that this is over read and that this is simple calcifications no bleeding. The patient also cannot get TNK because of his previous head bleed. An MRI was suggested and that was nor mal and he has age-related changes but no acute stroke. As such and continued workup for his altered mental status they noted that he had a slight rise in his creatinine of 1.5 from his baseline 1.1. BUN is usually elevated and it was 27 and stable. White cell count is elevated to 24.3 thousand and was 5.9 in March. His chest x-ray shows subtle bilateral lower lobe infiltrates suspicious for pneumonia. As such, after discussion with the ER provider, we think this patient may have had some aspiration, altered mental status, and now comes in with pneumonia. I will be admitting the patient to inpatient status. - HOSPITAL COURSE Hospital Course: (1) Metabolic encephalopathy Due to infection. Resolved (2) E coli bacteremia He needs to take Levaquin thru July 24. (3) E coli UTI As in #1 (4) Pneumonia He completed 2 days of IV Rocephin. Switched Ceftriaxone to p.o. Levaquin and he should complete Levaquin on July 24. (5) Vascular dementia Dementia severity: moderate (6) Hypertension Stable on meds (7) Seizure disorder He is only on Keppra. - ALLERGIES Allergies/Adverse Reactions: Allergies Allergy/AdvReac Type Severity Reaction Status Date / Time No Known Drug Allergies Allergy Verified 03/11/23 00:46 - MEDICATIONS Home Medications: Ambulatory Orders Medication Instructions Recorded Confirmed FLUoxetine [PROzac] 20 mg PO DAILY 07/18/21 07/19/23 Felodipine [Felodipine ER] 10 mg PO DAILY 07/18/21 07/19/23 Ferrous Sulfate 325 mg PO DAILY 07/18/21 07/19/23 Levetiracetam [Keppra] 1,000 mg PO BID 07/18/21 07/19/23 Lisinopril [Zestril] 40 mg PO DAILY 07/18/21 07/19/23 Mirtazapine 30 mg PO QPM 07/18/21 07/19/23 Omeprazole Magnesium 20 mg PO DAILY 07/18/21 07/19/23 Chlorthalidone 25 mg PO DAILY 07/19/23 07/19/23 Loratadine [Claritin] 10 mg PO DAILY 07/19/23 07/19/23 Saccharomyces Boulardii [Florastor] 250 mg PO BID 2 Days #4 cap 07/22/23 levoFLOXacin [Levofloxacin] 750 mg PO DAILY #2 tablet 07/22/23 - PHYSICAL EXAM AT DISCHARGE General Appearance: positive: No acute distress, Alert Eyes Bilateral: positive: Normal inspection, EOMI ENT: positive: ENT inspection nml, No signs of dehydration Neck: positive: Nml inspection, No JVD Respiratory: positive: No respiratory distress, Breath sounds nml Cardiovascular: positive: Regular rate & rhythm, No murmur Abdomen: positive: Non-tender, No distention Skin: positive: Warm, Dry Extremities: positive: Non-tender, No pedal edema Neurologic/Psychiatric: positive: CN's nml (2-12), Motor nml, Disoriented to person, Disoriented to place, Disoriented to time, Other (Minimally communicative) - LABS Result Diagrams: 07/21/23 05:56 07/21/23 05:56 - FOLLOW UP Follow Up: See PCP for a hospital F/U visit
[2023-07-22 15:44] VITALS: BP 177/93; O2SAT 94
== END 2023-07-22 16:00 | DRG 193 ==
LOC: EDUNIT# → ED 13:40 → MS2 17:32
PROVIDERS: ADMIT Specialist; ATTEND Internal Medicine
DX: J18.9 Pneumonia, unspecified organism (principal); G93.40 Encephalopathy, unspecified; R47.81 Slurred speech; G93.41 Metabolic encephalopathy; E87.1 Hypo-osmolality and hyponatremia; N39.0 Urinary tract infection, site not specified; F03.90 Unspecified dementia, unspecified severity, without behavioral disturbance, psychotic disturbance, mood disturbance, and anxiety; Z86.73 Personal history of transient ischemic attack (TIA), and cerebral infarction without residual deficits; G23.8 Other specified degenerative diseases of basal ganglia; B96.20 Unspecified Escherichia coli [E. coli] as the cause of diseases classified elsewhere; F01.B0 Vascular dementia, moderate, without behavioral disturbance, psychotic disturbance, mood disturbance, and anxiety; I10 Essential (primary) hypertension; R00.0 Tachycardia, unspecified; R41.89 Other symptoms and signs involving cognitive functions and awareness; G40.909 Epilepsy, unspecified, not intractable, without status epilepticus; R53.1 Weakness; R29.810 Facial weakness; R29.898 Other symptoms and signs involving the musculoskeletal system; R32 Unspecified urinary incontinence; F32.A Depression, unspecified; F41.9 Anxiety disorder, unspecified; Z87.891 Personal history of nicotine dependence; R41.3 Other amnesia
CPT/HCPCS: 36415; 70450; 70496; 70498; 70551; 71045; 80048; 80053; 80185; 81001; 82306; 83605; 83690; 85025; 85610; 87040; 87070; 87086; 87150; 87181; 87205; 87633; 93005; 97162; 97166; 99285; 99291; A9270; J1650; Q9967; 81003

== ENCOUNTER 2023-07-22 15:54 | Outpatient (CLI) | payer MEDICARE, OTHER | END 2023-07-22 15:55 | LOC: EMS 15:54 | PROVIDERS: ATTEND Internal Medicine | DX: R41.0 Disorientation, unspecified (principal); Z74.01 Bed confinement status; N39.0 Urinary tract infection, site not specified; J18.9 Pneumonia, unspecified organism; R56.9 Unspecified convulsions; I10 Essential (primary) hypertension; F03.90 Unspecified dementia, unspecified severity, without behavioral disturbance, psychotic disturbance, mood disturbance, and anxiety | CPT/HCPCS: A0425; A0428 ==

== ENCOUNTER 2024-04-01 12:04 | Outpatient (CLI) | payer MEDICARE, OTHER | END 2024-04-01 23:59 | disposition E | LOC: EMS 12:04 ==